=== PATIENT | female | born 1960 | race Caucasian/White ===

== ENCOUNTER 2022-02-07 09:51 | Outpatient (REF) | payer OTHER, SELFPAY ==
[2022-02-07 10:01] LABS: MANUAL DIFF FLAG NO
[2022-02-07 10:16] LABS: Basophils Absolute Auto 0.1 X10*3/uL (0.0-0.2); Basophils Percent Auto 0.6 % (0-2); Eosinophils Absolute Auto 0.2 X10*3/uL (0.0-0.4); Eosinophils Percent Auto 1.8 % (0-4); Hematocrit 37.8 % (37.0-47.0); Hemoglobin 12.4 g/dl (12.0-16.0); Imm Gran Abs Auto 0.02 X10*3/uL (0.00-0.03); Imm Gran Pct Auto 0.2 % (0.0-0.4); Lymphocytes Absolute Auto 2.8 X10*3/uL (1.2-4.9); Lymphocytes Percent Auto 29.3 % (20-40); Mean Corpuscular HGB Conc 32.8 g/dl (31.0-35.0); Mean Corpuscular Hemoglobin 27.9 pg (27.0-33.0); Mean Corpuscular Volume 85.1 fL (80.0-98.0); Mean Platelet Volume 9.2 fL (9.4-12.3); Monocytes Absolute Auto 0.6 X10*3/uL (0.1-1.2); Monocytes Percent Auto 6.5 % (2-11); Neutrophils Absolute Auto 5.9 x10*3/uL (2.0-8.3); Neutrophils Percent Auto 61.6 % (45-73); Platelet Count 354 X10*3/uL (160-400); Red Blood Count 4.44 X10*6/uL (4.20-5.50); Red Cell Distribution Width 12.9 % (11.0-16.0); White Blood Count 9.6 X10*3/uL (4.8-10.8)
[2022-02-07 10:53] LABS: Alanine Aminotransferase 25 U/L (0-31); Albumin Level 4.8 g/dL (3.5-5.0); Alkaline Phosphatase 94 U/L (39-117); Anion Gap 16 (12-20); Aspartate Amino Transferase 26 U/L (5-31); Bilirubin Total 0.3 mg/dL (0.0-1.0); Blood Urea Nitrogen 11 mg/dL (9-16); Calcium 9.8 mg/dL (8.4-10.2); Carbon Dioxide 23 mmol/L (22-29); Chloride 104 mmol/L (96-108); Cholesterol 231 mg/dL; Estimated Glomerular Filt Rate > 60; Glucose Fasting 102 mg/dL (60-99); HDL Cholesterol 49 mg/dL; LDL Cholesterol Calculated 152 mg/dl; Potassium 4.1 mmol/L (3.3-5.1); Sodium 139 mmol/L (135-145); Triglycerides 152 mg/dL
[2022-02-07 11:04] LABS: TSH reflex Free T4 3.66 uIU/mL (0.32-4.0); Vitamin D 25-OH Total 25.5 ng/mL (>30)
[2022-02-07 11:15] LABS: Erythrocyte Sedimentation Rate 30 MM/HR (0-20)
[2022-02-07 11:44] LABS: Appearance Urine CLEAR; Color Urine YELLOW; Glucose Urine UA NEG (NEG); Leukocyte Esterase Urine NEG (NEG); Nitrite Urine NEG (NEG); Specific Gravity - Urine 1.015 (1.005-1.025); Urine Blood NEG (NEG); Urine Ketones NEG (NEG); Urine Protein NEG (NEG-TRACE)
== END 2022-02-07 09:52 | disposition home or self-care (01) ==
LOC: HO.LAB 09:51
PROVIDERS: PCP Internal Medicine; Visit Provider Internal Medicine
DX: R30.0 Dysuria (principal); D64.9 Anemia, unspecified; E78.00 Pure hypercholesterolemia, unspecified; M25.50 Pain in unspecified joint; E55.9 Vitamin D deficiency, unspecified
CPT/HCPCS: 36415; 80053; 80061; 81003; 82306; 84443; 85025; 85652

== ENCOUNTER 2023-01-13 12:43 | Outpatient (AMB) | payer OTHER, SELFPAY ==
--- NOTE | 2023-01-13 12:45 | A.OFFPC_ITS ---
Vital Signs 01/13/23 12:46 Height 5 ft 5 in Weight 126 lb 4 oz BMI 21.0 BP 140/82 H Blood Pressure Location Lt brachial Position Sitting Pulse 96 Pulse Source Pulse Oximeter Pulse Oximetry (%) 97 Oxygen Delivery Method Room Air Intake Visit Reasons: Annual exam Intake Note: Patient is here for a physical exam. Ux Lead Required: No Accompanied by: Self / Same As Patient Allergies azithromycin [From ZITHROMAX] Adverse Reaction (Severe, Verified 05/19/23 14:22) SHORTNESS OF BREATH codeine [CODEINE] Adverse Reaction (Severe, Verified 05/19/23 14:22) SHORTNESS OF BREATH penicillin V Adverse Reaction (Unknown, Verified 05/19/23 14:22) fever ??? Medication List - Last Reconciled 01/13/23 by Jossue Trevino MD acetaminophen (Tylenol) 325 mg PO .2-3 TIMES A DAY PRN buspirone 5 mg (1/2 x 10 mg) PO BID ergocalciferol (vitamin D2) 10 mcg PO BID 30 days loratadine 10 mg PO DAILY PRN multivitamin 1 tab PO DAILY nabumetone 500 mg PO BID PRN Tobacco use date assessed: 01/13/23 HPI Annual exam HPI Details Patient comes in today for her annual physical examination States that she feels okay except for her spring allergies Is currently taking Loratadine 10 mg QD but would also like to get an Rx for a nasal spray She denies any headaches or dizziness; denies any fever or sore throat Denies any chest pains, no SOB No nausea/vomiting, no abdominal pain No change in bowel habits noted Denies any acute urinary symptoms Mammogram was last done in 2009 - patient has declined to go for annual screening mammograms since then Pap smear and district administrative assistant exam last done on 04/13/2013 - has not had one done since by choice [facility] Medical History Vitamin D deficiency Arthralgia Allergic rhinitis Chronic tonsillar hypertrophy Elevated LFTs Hyperlipidemia Vitiligo Anxiety Depression Arthritis Anemia Surgical History No pertinent past surgical history Family History Father No problems noted. Mother No problems noted. Social History Housing: House Alcohol intake: never Patient Tobacco Use Status: Former Tobacco user e-Cigarette/Vaping Use: Never Used Second Hand Smoke Exposure: Yes service: No Current occupational status: unemployed Cognitive needs: No Hearing needs: No Vision needs: No Female Reproductive History Menstrual Menopause type: natural (since 2009) Total pregnancies: 1 Full term: 1 Premature: 0 Number of Living Children: 1 Date of last pap smear: 04/13/13 History of abnormal pap smear: No Date of Mammogram: 12/14/09 History of abnormal mammogram: No Questionnaire PHQ-9 Over the last 2 weeks, how often have you been bothered by any of the following problems? 1. Little interest or pleasure in doing things: not at all 2. Feeling down, depressed, or hopeless: not at all 3. Trouble falling or staying asleep, or sleeping too much: not at all 4. Feeling tired or having little energy: not at all 5. Poor appetite or overeating: not at all 6. Feeling bad about yourself - or that you are a failure or have let yourself or your family down: not at all 7. Trouble concentrating on things, such as reading the newspaper or watching television: not at all 8. Moving or speaking so slowly that other people could have noticed. Or the opposite - being so fidgety or restless that you have been moving around a lot more than usual: not at all 9. Thoughts that you would be better off or of hurting yourself in some way: not at all Total score: 0 Depression Screening Interpretation: Negative (symptoms controlled on Rx) 56852 - PHQ-9 Billing: Yes Source: Developed by Drs. Chandana Wright, Margo Tyson, Harry Carlson and colleagues, with an educational abbey from [employer]. Thrive Questionnaire Date Thrive assessed: 01/13/23 I am a: Patient What is your living situation today?: I have a steady place to live Within the past 12 months, did the food you bought not last and you didn't have the money to get more?: Never true Within the past 12 months, did you worry whether your food would run out before you got money to buy more?: Never true Do you have trouble paying for medicines?: No Do you have trouble getting transportation to medical appointments?: No Do you have trouble paying your heating and electricity bill?: No Do you have trouble taking care of your child, family member or friend?: No Do you have trouble with day-to-day activities such as bathing, preparing meals, shopping, managing finances, etc.?: No Are you currently unemployed and looking for a job?: No Are you interested in more education?: No Currently or been in a relationship where the following occur: no concerns reported AUDIT C Alcohol Use Questionnaire (AUDIT-C) 1. How often do you have a drink containing alcohol?: Never 3. How often do you have six or more drinks on one occasion?: Never Total Score: 0 Score Reviewed/Action Taken: Yes CARLY-7 AMB Questionnaire CARLY-7 Date CARLY - 7 assessed: 01/13/23 Feeling nervous, anxious, or on edge: 0 = Not at all Not being able to stop or control worryin = Not at all Worrying too much about different things: 0 = Not at all Trouble relaxin = Not at all Being so restless that it is hard to sit still: 0 = Not at all Becoming easily annoyed or irritable: 0 = Not at all Feeling afraid as if something awful might happen: 0 = Not at all Total CARLY-7 score (0-4 normal; 5-9 mild; 10-14 moderate; 15-21 severe): 0 Source: Developed by Drs. Chandana Wright, Margo Tyson, Harry Carlson and colleagues, with an educational abbey from [employer]. CARLY-7 Assessment Billing CARLY-7 Assessment Tool: CARLY-7 Assessment 31662 Review of Systems Const Denies chills, Reports fatigue, Denies fever(s), Denies headache(s) and Denies malaise Eyes Denies blurry vision, Denies change in vision, Denies irritation and Denies itchy eyes ENT Denies dysphagia, Denies dizziness, Denies otalgia, Denies headache(s), Denies nasal congestion, Denies neck pain, Denies odynophagia, Denies sinus pain and Denies sore throat Card Denies chest pain, Denies rapid heart rate, Denies irregular heart rhythm, Denies palpitations and Denies dyspnea Resp Denies chest congestion, Denies cough, Denies dyspnea and Denies wheezing GI Denies abdominal pain, Denies bloating, Denies constipation, Denies dysphagia, Denies heartburn, Denies diarrhea, Denies nausea, Denies odynophagia and Denies vomiting Denies hematuria, Denies urinary frequency, Denies dysuria, Denies urinary incontinence and Denies urinary urgency Musc Denies back pain, Denies arthralgias, Denies joint swelling, Denies muscle weakness and Denies neck pain Skin/Breast Denies breast pain, Denies breast mass, Denies change in pigmentation, Denies lesions, Denies rash and Denies unusual bruising Neuro Denies dizziness, Denies headache(s) and Denies paresthesias Psych Denies anxiety and Denies depression Endo Reports fatigue and Denies palpitations Toni/Lymph Denies easy bruising Aller/Immun Denies itchy eyes, Reports seasonal rhinorrhea and Denies wheezing Physical exam (Primary Care) Vital Signs: Last Vital Signs Pulse 96 01/13/23 12:46 BP 140/82 H 01/13/23 12:46 Pulse Ox 97 01/13/23 12:46 Oxygen Delivery Method Room Air 01/13/23 12:46 BMI result Body Mass Index 21.0 Tobacco/Smoking Status: Tobacco use Status Tobacco use date assessed 01/13/23 01/13/23 12:53 Patient Tobacco Use Status Former Tobacco user 01/13/23 12:53 e-Cigarette/Vaping Use Never Used 01/13/23 12:53 PHQ-9: PHQ-9 Score PHQ-9: Total score 0 01/13/23 13:24 Depression Screening Interpretation: Negative (symptoms controlled on Rx) Thrive Assessment: Date of Thrive Assessment Date Thrive assessed 01/13/23 01/13/23 12:53 Currently or been in a relationship where the following occur: no concerns reported Const General: no acute distress, alert and awake Orientation/consciousness: patient oriented x3 HENMT Head: Yes normocephalic and Yes atraumatic Ears: external ears normal, TM's normal bilaterally and EAC's normal General nose exam: No nasal discharge present Face and sinus: Yes normal facial exam and Yes sinuses nontender Teeth and gingiva: dentition normal Throat: Yes posterior oropharynx normal and Yes tonsils normal (no TP congestion) Eyes Eyelids: Yes eyelids normal Conjunctivae: conjunctivae normal Pupils: Equal, round and reactive pupils present EOM: EOMs intact bilaterally Neck Neck: Yes no lymphadenopathy and Yes supple Thyroid: Thyroid normal Resp Auscultation: clear to auscultation bilaterally, no rales and no wheezes Cardio Rate: regular rate Rhythm: regular rhythm Heart sounds: no murmurs GI Palpation (GI): Soft to palpation, nontender and No hepatosplenomegaly present Auscultation: normal bowel sounds General: Yes no CVA tenderness Back/Spine/Pelvis Back: no CVA tenderness Thoracic/Lumbar Spine: thoracic and lumbar spine normal to inspection Skin Lesions: no lesions Rashes: no rashes Neuro General: patient oriented x3, moves all extremities, no focal motor deficits and CN's II-XI intact bilaterally Cranial nerves: Yes Equal, round and reactive pupils present Cognition (Neuro): normal cognition Gait exam (Neuro): Normal gait present Extrem General: Yes no clubbing, cyanosis or edema Assessment and Plan Assessment & Plan (1) Annual physical exam: Code(s): Z00.00 - Encounter for general adult medical examination without abnormal findings Plan: Check labs Patient declined referrals for district administrative assistant exam/pap smear and repeat mammogram She has never had a colonoscopy done before and does not want one BUT agrees to do at least a Cologuard testing - ordered (2) Hyperlipidemia: Code(s): E78.5 - Hyperlipidemia, unspecified Qualifiers: Hyperlipidemia type: pure hypercholesterolemia Qualified Code(s): E78.00 - Pure hypercholesterolemia, unspecified Plan: Reinforced low cholesterol diet Will recheck her fasting lipids [facility] for follow up (3) Anemia: Code(s): D64.9 - Anemia, unspecified Qualifiers: Anemia type: unspecified type Qualified Code(s): D64.9 - Anemia, unspecified Plan: Her anemia was corrected on her lab results from over a year ago Will recheck her CBC and continue to monitor her CBC periodically / yearly (4) Chronic tonsillar hypertrophy: Code(s): J35.1 - Hypertrophy of tonsils Plan: Currently remains asymptomatic -?will continue to observe for now Patient was referred to ENT for evaluation in the past but she was not able to keep her appointment and prefers not to see ENT at this time since her throat has not been bothering her at all (5) Allergic rhinitis: Code(s): J30.9 - Allergic rhinitis, unspecified Qualifiers: Allergic rhinitis trigger: unspecified Allergic rhinitis seasonality: unspecified Qualified Code(s): J30.9 - Allergic rhinitis, unspecified Plan: Continue OTC Loratadine 10 mg QD PRN Will start her additionally on Fluticasone 50 mcg nasal spray QD PRN (6) Vitamin D deficiency: Code(s): E55.9 - Vitamin D deficiency, unspecified Plan: Will start her on Vitamin D3 2000 units QD Reminded to continue taking her daily Multivitamins as well (7) Arthralgia: Code(s): M25.50 - Pain in unspecified joint Qualifiers: Joint pain location: unspecified Qualified Code(s): M25.50 - Pain in unspecified joint Plan: Continue Nabumetone 500 mg BID PRN and OTC Tylenol as needed for pain -? states that her joint pains have been adequately controlled on her current regimen (8) Anxiety: Code(s): F41.9 - Anxiety disorder, unspecified Plan: Continue Buspirone 30 mg 1/2 tablet BID Follow-up with Psychiatry as scheduled Plan Follow up in 4 months Orders: Orders Complete Blood Count Auto Diff 01/13/23 I10 - Essential (primary) hypertension, Z00.00 - Encounter for general adult medical examination without abnormal findings TSH reflex Free T4 01/13/23 E78.00 - Pure hypercholesterolemia, unspecified, Z00.00 - Encounter for general adult medical examination without abnormal findings Vitamin B12 and Folate 01/13/23 E53.8 - Deficiency of other specified B group vitamins, Z00.00 - Encounter for general adult medical examination without abnormal findings Comprehensive [place]. Panel Fast 01/13/23 E78.00 - Pure hypercholesterolemia, unspecified, Z00.00 - Encounter for general adult medical examination without abnormal findings Lipid Panel 01/13/23 E78.00 - Pure hypercholesterolemia, unspecified, Z00.00 - Encounter for general adult medical examination without abnormal findings UA CC w/rflx Micro + Cult 01/13/23 R30.0 - Dysuria, Z00.00 - Encounter for general adult medical examination without abnormal findings Vitamin D 25-OH Total 01/13/23 E55.9 - Vitamin D deficiency, unspecified, Z00.00 - Encounter for general adult medical examination without abnormal findings Referrals Cologuard Test Z12.11 - Encounter for screening for malignant neoplasm of colon, Z12.12 - Encounter for screening for malignant neoplasm of rectum Medications: New fluticasone propionate 50 mcg/actuation administer into each nostril 2 sprays intranasal DAILY PRN 16 grams 5RF allergy symptoms 30 days cholecalciferol (vitamin D3) 50 mcg PO DAILY 90 caps 3RF 90 days E55.9 - Vitamin D deficiency, unspecified Discontinued ergocalciferol (vitamin D2) Discontinued Reason: Doctor's Order 10 mcg PO BID 30 days 60 tabs 5RF Review Patient declined Mammogram: 01/13/23 Declined Pap Smear: 01/13/23 Patient declined Colonoscopy: 01/13/23 (agrees to do Cologuard) Coding Level of Care Code Est Pt Prev Care 40-64y(73957) Diagnoses Annual physical exam Z00.00 Pure hypercholesterolemia E78.00 Hyperlipidemia type: pure hypercholesterolemia Anemia, unspecified type D64.9 Anemia type: unspecified type Chronic tonsillar hypertrophy J35.1 Allergic rhinitis, unspecified seasonality, unspecified trigger J30.9 Allergic rhinitis trigger: unspecified Allergic rhinitis seasonality: unspecified Vitamin D deficiency E55.9 Arthralgia, unspecified joint M25.50 Joint pain location: unspecified Anxiety F41.9 Additional Codes CARLY-7 Assessment Billing - CARLY-7 Assessment Tool: CARLY-7 Assessment 15053 ([id number])
[2023-01-13 12:46] VITALS: BP 140/82; PULSE 96; O2SAT 97; BMI 21.0
== END 2023-01-13 13:32 | disposition home or self-care (01) ==
LOC: HO.HMGH 12:43
PROVIDERS: PCP Internal Medicine; Visit Provider Internal Medicine
DX: Z00.00 Encounter for general adult medical examination without abnormal findings (principal); E55.9 Vitamin D deficiency, unspecified; F41.9 Anxiety disorder, unspecified; E78.00 Pure hypercholesterolemia, unspecified; D64.9 Anemia, unspecified; J35.1 Hypertrophy of tonsils; J30.9 Allergic rhinitis, unspecified; M25.50 Pain in unspecified joint
CPT/HCPCS: 99396

== ENCOUNTER 2023-05-19 13:59 | Outpatient (AMB) | payer OTHER, SELFPAY ==
--- NOTE | 2023-05-19 13:59 | MHC.PC.OV ---
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 Medication List - Last Reconciled 05/19/23 by Jossue Trevino MD acetaminophen (Tylenol) 325 mg PO .2-3 TIMES A DAY PRN buspirone 5 mg (1/2 x 10 mg) PO BID cholecalciferol (vitamin D3) 50 mcg PO DAILY 90 days fluticasone propionate 50 mcg/actuation 2 sprays intranasal DAILY PRN 30 days loratadine 10 mg PO DAILY PRN multivitamin 1 tab PO DAILY nabumetone 500 mg PO BID PRN Tobacco use date assessed: 05/19/23 Dental Screening Dental Screen Date: 05/19/23 Did you have a dental visit in the last 12 months?: No Did you have a dental problem in the last 6 months where you did not have access to dental care?: No Was dental information given to patient?: No HPI hyperlipidemia, anxiety [phone] HPI Details Patient's follow-up visit / consultation today is done over the phone - this is a Telehealth visit Patient's current medications have been reviewed and verified with patient and / or caregiver / proxy and have been updated accordingly in the medication list Patient states that she recently changed insurance and was advised 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 that she should be requesting for a 3 months' supply on her Rx from now on - states that she needs a couple of her Rx refilled at this time States that she has not yet gotten her previously ordered labs done and will try to get these done DAMION She denies any headaches or dizziness Denies any chest pains, no SOB No nausea/vomiting, no abdominal pain No change in bowel habits noted PFSH Medical History Vitamin D deficiency Arthralgia Allergic rhinitis Chronic tonsillar hypertrophy Elevated LFTs Hyperlipidemia Vitiligo Anxiety Depression Arthritis Anemia Surgical History No pertinent past surgical history Family History Father No problems noted. Mother No problems noted. Social History Housing: House Alcohol intake: never Patient Tobacco Use Status: Former Tobacco user e-Cigarette/Vaping Use: Never Used Second Hand Smoke Exposure: Yes service: No Current occupational status: unemployed Cognitive needs: No Hearing needs: No Vision needs: No Questionnaire PHQ-9 Over the last 2 weeks, how often have you been bothered by any of the following problems? 1. Little interest or pleasure in doing things: not at all 2. Feeling down, depressed, or hopeless: not at all 3. Trouble falling or staying asleep, or sleeping too much: not at all 4. Feeling tired or having little energy: not at all 5. Poor appetite or overeating: not at all 6. Feeling bad about yourself - or that you are a failure or have let yourself or your family down: not at all 7. Trouble concentrating on things, such as reading the newspaper or watching television: not at all 8. Moving or speaking so slowly that other people could have noticed. Or the opposite - being so fidgety or restless that you have been moving around a lot more than usual: not at all 9. Thoughts that you would be better off or of hurting yourself in some way: not at all Total score: 0 Depression Screening Interpretation: Negative (symptoms controlled on Rx) 14683 - PHQ-9 Billing: Yes Source: Developed by Drs. Chandana Wright, Margo Tyson, Harry Carlson and colleagues, with an educational abbey from [employer]. Thrive Questionnaire Date Thrive assessed: 05/19/23 I am a: Patient What is your living situation today?: I have a steady place to live Within the past 12 months, did the food you bought not last and you didn't have the money to get more?: Never true Within the past 12 months, did you worry whether your food would run out before you got money to buy more?: Never true Do you have trouble paying for medicines?: No Do you have trouble getting transportation to medical appointments?: No Do you have trouble paying your heating and electricity bill?: No Do you have trouble taking care of your child, family member or friend?: No Do you have trouble with day-to-day activities such as bathing, preparing meals, shopping, managing finances, etc.?: No Are you currently unemployed and looking for a job?: No Are you interested in more education?: No Please select the resources that you would like help with: None Currently or been in a relationship where the following occur: no concerns reported AUDIT C Alcohol Use Questionnaire (AUDIT-C) 1. How often do you have a drink containing alcohol?: Never 3. How often do you have six or more drinks on one occasion?: Never Total Score: 0 Score Reviewed/Action Taken: Yes CARLY-7 AMB Questionnaire CARLY-7 Date CARLY - 7 assessed: 05/19/23 Feeling nervous, anxious, or on edge: 0 = Not at all Not being able to stop or control worryin = Not at all Worrying too much about different things: 0 = Not at all Trouble relaxin = Not at all Being so restless that it is hard to sit still: 0 = Not at all Becoming easily annoyed or irritable: 0 = Not at all Feeling afraid as if something awful might happen: 0 = Not at all Total CARLY-7 score (0-4 normal; 5-9 mild; 10-14 moderate; 15-21 severe): 0 Source: Developed by Drs. Chandana Wright, Margo Tyson, Harry Carlson and colleagues, with an educational abbey from [employer]. CARLY-7 Assessment Billing CARLY-7 Assessment Tool: CARLY-7 Assessment 98704 Review of Systems Const Denies chills, Reports fatigue, Denies fever(s) and Denies headache(s) ENT Denies dysphagia, Denies dizziness, Denies otalgia, Denies headache(s), Denies neck pain, Denies odynophagia and Denies sore throat Card Denies chest pain, Denies rapid heart rate, Denies irregular heart rhythm, Denies palpitations and Denies dyspnea Resp Denies chest congestion, Denies cough, Denies dyspnea and Denies wheezing GI Denies abdominal pain, Denies constipation, Denies dysphagia, Denies heartburn, Denies diarrhea, Denies nausea, Denies odynophagia and Denies vomiting Denies hematuria, Denies urinary frequency and Denies dysuria Musc Denies back pain and Denies neck pain Neuro Denies dizziness and Denies headache(s) Psych Denies anxiety and Denies depression Endo Reports fatigue and Denies palpitations Toni/Lymph Denies easy bruising Aller/Immun Reports seasonal rhinorrhea and Denies wheezing Physical exam (Primary Care) Vital Signs: Physical examination is not performed as visit / consultation today is done over the phone - Telehealth visit All physical findings indicated here, if present, are as per patient's and / or caregivers / proxy's report Tobacco/Smoking Status: Tobacco use Status Tobacco use date assessed 05/19/23 05/19/23 14:02 Patient Tobacco Use Status Former Tobacco user 05/19/23 14:02 e-Cigarette/Vaping Use Never Used 05/19/23 14:02 PHQ-9: PHQ-9 Score PHQ-9: Total score 0 05/19/23 14:02 Depression Screening Interpretation: Negative (symptoms controlled on Rx) Thrive Assessment: Date of Thrive Assessment Date Thrive assessed 05/19/23 05/19/23 14:02 Currently or been in a relationship where the following occur: no concerns reported Telehealth Telehealth Location of provider rendering services: practice address Location of patient: address on file Patient Identification confirmed using: Name, : Yes Telehealth method: voice only Patient verbally consented to treatment: Yes Patient verbally consented to billing insurance company: Yes Patient informed of any privacy concerns related to visit: Yes Minutes spent on Phone/Video with Pt.: 16 Assessment and Plan Assessment & Plan (1) Hyperlipidemia: Code(s): E78.5 - Hyperlipidemia, unspecified Qualifiers: Hyperlipidemia type: pure hypercholesterolemia Qualified Code(s): E78.00 - Pure hypercholesterolemia, unspecified Plan: Reinforced low cholesterol diet She still has not been able to get her follow up labs done and is reminded to try to get these done DAMION (2) Anemia: Code(s): D64.9 - Anemia, unspecified Qualifiers: Anemia type: unspecified type Qualified Code(s): D64.9 - Anemia, unspecified Plan: Advised that her anemia was corrected on her last lab results from over a year ago Will continue to monitor her CBC periodically / yearly (3) Chronic tonsillar hypertrophy: Code(s): J35.1 - Hypertrophy of tonsils Plan: Currently remains asymptomatic -?will continue to observe for now Patient was referred to ENT for evaluation in the past but she was not able to keep her appointment and prefers not to see ENT at this time since her throat has not been bothering her at all (4) Allergic rhinitis: Code(s): J30.9 - Allergic rhinitis, unspecified Qualifiers: Allergic rhinitis trigger: unspecified Allergic rhinitis seasonality: unspecified Qualified Code(s): J30.9 - Allergic rhinitis, unspecified Plan: Continue OTC Loratadine 10 mg QD PRN and Fluticasone 50 mcg nasal spray QD PRN - Rx refilled for 90 days's supply, per request (5) Vitamin D deficiency: Code(s): E55.9 - Vitamin D deficiency, unspecified Plan: Continue Vitamin D2 400 units BID - could not tolerate Vitamin D3 2000 units QD previously Reminded to continue taking her daily Multivitamins as well (6) Arthralgia: Code(s): M25.50 - Pain in unspecified joint Qualifiers: Joint pain location: unspecified Qualified Code(s): M25.50 - Pain in unspecified joint Plan: Continue Nabumetone 500 mg BID PRN and OTC Tylenol as needed for pain -? states that her joint pains have been adequately controlled on her current regimen (7) Anxiety: Code(s): F41.9 - Anxiety disorder, unspecified Plan: Continue Buspirone 30 mg 1/2 tablet BID Follow-up with Psychiatry as scheduled Plan Follow up in 4 months Medications: Changed From loratadine 10 mg PO DAILY PRN 30 tabs 5RF for allergies To loratadine 10 mg PO DAILY 90 days PRN 90 tabs 3RF for allergies From fluticasone propionate 50 mcg/actuation administer into each nostril 2 sprays intranasal DAILY 30 days PRN 16 grams 5RF allergy symptoms To fluticasone propionate 50 mcg/actuation administer into each nostril 2 sprays intranasal DAILY 90 days 3 multiple units 3RF allergy symptoms Coding Level of Care Code Tele Est Pt Level 3 (74810) Diagnoses Pure hypercholesterolemia E78.00 Hyperlipidemia type: pure hypercholesterolemia Anemia, unspecified type D64.9 Anemia type: unspecified type Chronic tonsillar hypertrophy J35.1 Allergic rhinitis, unspecified seasonality, unspecified trigger J30.9 Allergic rhinitis trigger: unspecified Allergic rhinitis seasonality: unspecified Vitamin D deficiency E55.9 Arthralgia, unspecified joint M25.50 Joint pain location: unspecified Anxiety F41.9 Additional Codes CARLY-7 Assessment Billing - CARLY-7 Assessment Tool: CARLY-7 Assessment 20176 ([id number])
== END 2023-05-19 14:57 | disposition home or self-care (01) ==
LOC: HO.HMGH 13:59
PROVIDERS: PCP Internal Medicine; Visit Provider Internal Medicine
DX: E78.00 Pure hypercholesterolemia, unspecified (principal); D64.9 Anemia, unspecified; E55.9 Vitamin D deficiency, unspecified; F41.9 Anxiety disorder, unspecified; J35.1 Hypertrophy of tonsils; J30.9 Allergic rhinitis, unspecified; M25.50 Pain in unspecified joint
CPT/HCPCS: 99213

== ENCOUNTER 2023-09-22 14:21 | Outpatient (AMB) | payer OTHER, SELFPAY ==
[2023-09-22 14:23] VITALS: BP 160/90; PULSE 107; O2SAT 98; BMI 21.0
--- NOTE | 2023-09-22 14:23 | MHC.PC.OV ---
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 Medication List - Last Reconciled 09/22/23 by Jossue Trevino MD acetaminophen (Tylenol) 325 mg PO .2-3 TIMES A DAY PRN buspirone 5 mg (1/2 x 10 mg) PO BID cholecalciferol (vitamin D3) 50 mcg PO DAILY 90 days fluticasone propionate 50 mcg/actuation 2 sprays intranasal DAILY 90 days loratadine 10 mg PO DAILY PRN 90 days multivitamin 1 tab PO DAILY nabumetone 500 mg PO BID PRN Tobacco use date assessed: 09/22/23 Dental Screening Dental Screen Date: 09/22/23 Did you have a dental visit in the last 12 months?: No Did you have a dental problem in the last 6 months where you did not have access to dental care?: No Was dental information given to patient?: No HPI hyperlipidemia, anxiety HPI Details Patient comes in today for her follow up visit States that she feels okay Thinks that the reason her initial blood pressure was very high when checked was because she rode her bike all the way here from her house for her appointment and would like to have her blood pressure rechecked now that she has settled down She denies any headaches or dizziness Denies any chest pains, no SOB No nausea/vomiting, no abdominal pain No change in bowel habits noted States that she still has not gotten her labs done yet as she does not want to go to the hospital now due to increased risks of respiratory infection PFSH Medical History Vitamin D deficiency Arthralgia Allergic rhinitis Chronic tonsillar hypertrophy Elevated LFTs Hyperlipidemia Vitiligo Anxiety Depression Arthritis Anemia Surgical History No pertinent past surgical history Family History Father No problems noted. Mother No problems noted. Social History Housing: House Alcohol intake: never Patient Tobacco Use Status: Former Tobacco user e-Cigarette/Vaping Use: Never Used Second Hand Smoke Exposure: Yes service: No Current occupational status: unemployed Cognitive needs: No Hearing needs: No Vision needs: No Questionnaire PHQ-9 Over the last 2 weeks, how often have you been bothered by any of the following problems? 1. Little interest or pleasure in doing things: not at all 2. Feeling down, depressed, or hopeless: not at all 3. Trouble falling or staying asleep, or sleeping too much: not at all 4. Feeling tired or having little energy: not at all 5. Poor appetite or overeating: not at all 6. Feeling bad about yourself - or that you are a failure or have let yourself or your family down: not at all 7. Trouble concentrating on things, such as reading the newspaper or watching television: not at all 8. Moving or speaking so slowly that other people could have noticed. Or the opposite - being so fidgety or restless that you have been moving around a lot more than usual: not at all 9. Thoughts that you would be better off or of hurting yourself in some way: not at all Total score: 0 Depression Screening Interpretation: Negative (symptoms controlled on Rx) Depression Screening Done: Yes 54888 - PHQ-9 Billing: Yes Source: Developed by Drs. Chandana Wright, Marog Tyson, Harry Carlson and colleagues, with an educational abbey from [email or web address] Thrive Questionnaire Date Thrive assessed: 09/22/23 I am a: Patient What is your living situation today?: I have a steady place to live Within the past 12 months, did the food you bought not last and you didn't have the money to get more?: Never true Within the past 12 months, did you worry whether your food would run out before you got money to buy more?: Never true Do you have trouble paying for medicines?: No Do you have trouble getting transportation to medical appointments?: No Do you have trouble paying your heating and electricity bill?: No Do you have trouble taking care of your child, family member or friend?: No Do you have trouble with day-to-day activities such as bathing, preparing meals, shopping, managing finances, etc.?: No Are you currently unemployed and looking for a job?: No Are you interested in more education?: No Please select the resources that you would like help with: None Currently or been in a relationship where the following occur: no concerns reported THRIVE Score: 0 AUDIT C Alcohol Use Questionnaire (AUDIT-C) 1. How often do you have a drink containing alcohol?: Never 3. How often do you have six or more drinks on one occasion?: Never Total Score: 0 Score Reviewed/Action Taken: Yes CARLY-7 AMB Questionnaire CARLY-7 Date CARLY - 7 assessed: 09/22/23 Feeling nervous, anxious, or on edge: 0 = Not at all Not being able to stop or control worryin = Not at all Worrying too much about different things: 0 = Not at all Trouble relaxin = Not at all Being so restless that it is hard to sit still: 0 = Not at all Becoming easily annoyed or irritable: 0 = Not at all Feeling afraid as if something awful might happen: 0 = Not at all Total CARLY-7 score (0-4 normal; 5-9 mild; 10-14 moderate; 15-21 severe): 0 Source: Developed by Drs. Chandana Wright, Margo Tyson, Harry Carlson and colleagues, with an educational abbey from [email or web address] CARLY-7 Assessment Billing CARLY-7 Assessment Tool: CARLY-7 Assessment 34493 Review of Systems Const Denies chills, Denies fatigue, Denies fever(s) and Denies headache(s) ENT Denies dysphagia, Denies dizziness, Denies otalgia, Denies headache(s), Denies neck pain, Denies odynophagia and Denies sore throat Card Denies chest pain, Denies rapid heart rate, Denies irregular heart rhythm, Denies palpitations and Denies dyspnea Resp Denies chest congestion, Denies cough, Denies dyspnea and Denies wheezing GI Denies abdominal pain, Denies constipation, Denies dysphagia, Denies heartburn, Denies diarrhea, Denies nausea, Denies odynophagia and Denies vomiting Denies hematuria, Denies urinary frequency, Denies dysuria and Denies urinary urgency Musc Denies back pain, Denies arthralgias and Denies neck pain Skin/Breast Denies rash Neuro Denies dizziness and Denies headache(s) Psych Denies anxiety and Denies depression Endo Denies fatigue and Denies palpitations Toni/Lymph Denies easy bruising Aller/Immun Reports seasonal rhinorrhea and Denies wheezing Physical exam (Primary Care) Vital Signs: Last Vital Signs Pulse 107 H 09/22/23 14:23 BP 140/88 H 09/22/23 14:43 Pulse Ox 98 09/22/23 14:23 Oxygen Delivery Method Room Air 09/22/23 14:23 BMI result Body Mass Index 21.0 Tobacco/Smoking Status: Tobacco use Status Tobacco use date assessed 09/22/23 09/22/23 14:24 Patient Tobacco Use Status Former Tobacco user 09/22/23 14:24 e-Cigarette/Vaping Use Never Used 09/22/23 14:24 PHQ-9: PHQ-9 Score PHQ-9: Total score 0 09/22/23 14:49 Depression Screening Interpretation: Negative (symptoms controlled on Rx) Thrive Assessment: Date of Thrive Assessment Date Thrive assessed 09/22/23 09/22/23 14:24 Currently or been in a relationship where the following occur: no concerns reported Const General: no acute distress and alert HENMT Ears: TM's normal bilaterally and EAC's normal Throat: Yes posterior oropharynx normal and Yes abnormal tonsil (chronically enlarged tonsils bilaterally - tonsils do not appear congested) Neck Neck: Yes no lymphadenopathy and Yes supple Thyroid: Thyroid normal Resp Auscultation: clear to auscultation bilaterally, no rales and no wheezes Cardio Rate: regular rate Rhythm: regular rhythm Heart sounds: no murmurs GI Palpation (GI): Soft to palpation and nontender Auscultation: normal bowel sounds General: Yes no CVA tenderness Back/Spine/Pelvis Back: no CVA tenderness Thoracic/Lumbar Spine: thoracic and lumbar spine normal to inspection Skin Rashes: no rashes Extrem General: Yes no clubbing, cyanosis or edema Immunizations pneumoc 20-angella conj-dip cr(PF) 0.5 mL IM syringe Performing Provider: Jossue Trevino MD Performing Location: [facility] Administered by: Shaji Saavedra on 09/22/23 14:54 Dose Route Admin Location Dispensed Lot Number Expiration Date NDC Load Dropper 0.5 mL IM Left Deltoid 0.5 mL [id number] 10/01/24 [employer] Program VIS Given Date VIS Provided VIS Publication Date 09/22/23 Single Vaccine 21 Eligibility Eligibility Date Funding Source Not [facility] Eligible 09/22/23 Private Assessment and Plan Assessment & Plan (1) Hyperlipidemia: Code(s): E78.5 - Hyperlipidemia, unspecified Qualifiers: Hyperlipidemia type: pure hypercholesterolemia Qualified Code(s): E78.00 - Pure hypercholesterolemia, unspecified Plan: Reinforced low cholesterol diet She still has not been able to get her follow up labs done and is again reminded to try to get these done DAMION as she has not had any follow up labs done since 2021 (2) Anemia: Code(s): D64.9 - Anemia, unspecified Qualifiers: Anemia type: unspecified type Qualified Code(s): D64.9 - Anemia, unspecified Plan: Advised that her anemia was corrected when she last had her labs done in 01/2022 but we have not followed up on this since as she has not been able to get her follow up labs done yet Will continue to monitor her CBC periodically / yearly (3) Chronic tonsillar hypertrophy: Code(s): J35.1 - Hypertrophy of tonsils Plan: Currently remains asymptomatic -?will continue to observe for now Patient was referred to ENT for evaluation in the past but she was not able to keep her appointment and prefers not to see ENT at this time since her throat has not been bothering her at all (4) Elevated blood pressure reading in office without diagnosis of hypertension: Code(s): R03.0 - Elevated blood-pressure reading, without diagnosis of hypertension Plan: Patient's blood pressure has improved from her initial reading of 160/90 down to 140/88 mm when it was rechecked Reinforced low sodium diet Have instructed patient to continue monitoring her blood pressure regularly and reminded her that normal systolic BP should be at 120 mm or less (5) Allergic rhinitis: Code(s): J30.9 - Allergic rhinitis, unspecified Qualifiers: Allergic rhinitis seasonality: unspecified Allergic rhinitis trigger: unspecified Qualified Code(s): J30.9 - Allergic rhinitis, unspecified Plan: Continue OTC Loratadine 10 mg QD PRN and Fluticasone 50 mcg nasal spray QD PRN (6) Vitamin D deficiency: Code(s): E55.9 - Vitamin D deficiency, unspecified Plan: Continue Vitamin D2 400 units BID - could not tolerate Vitamin D3 2000 units QD previously She is again reminded to continue taking her daily Multivitamins as well (7) Arthralgia: Code(s): M25.50 - Pain in unspecified joint Qualifiers: Joint pain location: unspecified Qualified Code(s): M25.50 - Pain in unspecified joint Plan: Continue Nabumetone 500 mg BID PRN and OTC Tylenol as needed for pain -? states that her joint pains have been adequately controlled on her current regimen (8) Anxiety: Code(s): F41.9 - Anxiety disorder, unspecified Plan: Continue Buspirone 5 mg 1/2 tablet BID - she was able to cut back her dose on her own gradually over the past year or two Follow-up with Psychiatry as scheduled Plan Per request, Pneumovax-23 given today as she has not yet gotten any pneumonia vaccine in the past; will give her her dose of Prevnar-20 in a year's time Follow up in 4 months Orders: Orders Pneumococcal 20 Immunization 09/22/23 Z23 - Encounter for immunization Coding Level of Care Code Est Pt Level 4 (60718) Diagnoses Pure hypercholesterolemia E78.00 Hyperlipidemia type: pure hypercholesterolemia Anemia, unspecified type D64.9 Anemia type: unspecified type Chronic tonsillar hypertrophy J35.1 Elevated blood pressure reading in office without diagnosis of hypertension R03.0 Allergic rhinitis, unspecified seasonality, unspecified trigger J30.9 Allergic rhinitis seasonality: unspecified Allergic rhinitis trigger: unspecified Vitamin D deficiency E55.9 Arthralgia, unspecified joint M25.50 Joint pain location: unspecified Anxiety F41.9 Additional Codes CARLY-7 Assessment Billing - CARLY-7 Assessment Tool: CARLY-7 Assessment [id number] ([id number])
[2023-09-22 14:43] VITALS: BP 140/88
== END 2023-09-22 14:58 | disposition home or self-care (01) ==
PROVIDERS: PCP Internal Medicine; Visit Provider Internal Medicine
DX: Z23 Encounter for immunization (principal)
CPT/HCPCS: 90471; 90677; 99214

== ENCOUNTER 2024-01-22 14:36 | Outpatient (AMB) | payer OTHER, SELFPAY ==
--- NOTE | 2024-01-22 14:40 | MHC.PC.OV ---
Vital Signs 01/22/24 14:41 Height 5 ft 5 in Weight 126 lb BMI 21.0 BP 120/80 Blood Pressure Location Rt brachial Position Sitting Pulse 92 Pulse Source Pulse Oximeter Pulse Oximetry (%) 96 Oxygen Delivery Method Room Air Intake Visit Reasons: hyperlipidemia, arthralgia, anxiety, depression Intake Note: Patient is here to follow up on HLD, Arthralgia, Anxiety, Depression. Hearing Consultant Required: No Information Systems Security Manager: Not Required per policy Accompanied by: Self / Same As Patient Allergies azithromycin [From ZITHROMAX] Adverse Reaction (Severe, Verified 01/22/24 15:14) SHORTNESS OF BREATH codeine [CODEINE] Adverse Reaction (Severe, Verified 01/22/24 15:14) SHORTNESS OF BREATH penicillin V Adverse Reaction (Unknown, Verified 01/22/24 15:14) fever ??? Medication List - Last Reconciled 01/22/24 by Jossue Trevino MD acetaminophen (Tylenol) 325 mg PO .2-3 TIMES A DAY PRN buspirone 5 mg (1/2 x 10 mg) PO BID cholecalciferol (vitamin D3) 50 mcg PO DAILY 90 days fluticasone propionate 50 mcg/actuation 2 sprays intranasal DAILY 90 days loratadine 10 mg PO DAILY PRN 90 days multivitamin 1 tab PO DAILY nabumetone 500 mg PO BID PRN Tobacco use date assessed: 01/22/24 Dental Screening Dental Screen Date: 09/22/23 HPI hyperlipidemia, arthralgia, anxiety, depression HPI Details Patient comes in today for her follow up visit States that she feels okay She denies any headaches or dizziness Denies any chest pains, no SOB No nausea/vomiting, no abdominal pain No change in bowel habits noted Needs her allergy Rx refilled She still has not been able to get her follow up labs done yet - has not had labs done since 2021 States that she feels well and tries to eat healthy and does not think anything has changed significantly - states that she always has trouble remembering to get her labs over the years [facility] Medical History Vitamin D deficiency Arthralgia Allergic rhinitis Chronic tonsillar hypertrophy Elevated LFTs Hyperlipidemia Vitiligo Anxiety Depression Arthritis Anemia Surgical History No pertinent past surgical history Family History Father No problems noted. Mother No problems noted. Social History Housing: House Alcohol intake: never Patient Tobacco Use Status: Former Tobacco user e-Cigarette/Vaping Use: Never Used Second Hand Smoke Exposure: Yes service: No Current occupational status: unemployed Cognitive needs: No Hearing needs: No Vision needs: No Questionnaire PHQ-9 Over the last 2 weeks, how often have you been bothered by any of the following problems? 1. Little interest or pleasure in doing things: not at all 2. Feeling down, depressed, or hopeless: not at all 3. Trouble falling or staying asleep, or sleeping too much: not at all 4. Feeling tired or having little energy: not at all 5. Poor appetite or overeating: not at all 6. Feeling bad about yourself - or that you are a failure or have let yourself or your family down: not at all 7. Trouble concentrating on things, such as reading the newspaper or watching television: not at all 8. Moving or speaking so slowly that other people could have noticed. Or the opposite - being so fidgety or restless that you have been moving around a lot more than usual: not at all 9. Thoughts that you would be better off or of hurting yourself in some way: not at all Total score: 0 Depression Screening Interpretation: Negative Depression Screening Done: Yes 80842 - PHQ-9 Billing: Yes Source: Developed by Drs. Chandana Wright, Margo Tyson, Harry Carlson and colleagues, with an educational abbey from [employer]. Thrive Questionnaire Date Thrive assessed: 01/22/24 I am a: Patient What is your living situation today?: I have a steady place to live Within the past 12 months, did the food you bought not last and you didn't have the money to get more?: Never true Within the past 12 months, did you worry whether your food would run out before you got money to buy more?: Never true Do you have trouble paying for medicines?: No Do you have trouble getting transportation to medical appointments?: No Do you have trouble paying your heating and electricity bill?: No Do you have trouble taking care of your child, family member or friend?: No Do you have trouble with day-to-day activities such as bathing, preparing meals, shopping, managing finances, etc.?: No Are you currently unemployed and looking for a job?: No Are you interested in more education?: No Please select the resources that you would like help with: None Currently or been in a relationship where the following occur: no concerns reported THRIVE Score: 0 AUDIT C Alcohol Use Questionnaire (AUDIT-C) 1. How often do you have a drink containing alcohol?: Never 3. How often do you have six or more drinks on one occasion?: Never Total Score: 0 Score Reviewed/Action Taken: Yes CARLY-7 AMB Questionnaire CARLY-7 Date CARLY - 7 assessed: 01/22/24 Feeling nervous, anxious, or on edge: 0 = Not at all Not being able to stop or control worryin = Not at all Worrying too much about different things: 0 = Not at all Trouble relaxin = Not at all Being so restless that it is hard to sit still: 0 = Not at all Becoming easily annoyed or irritable: 0 = Not at all Feeling afraid as if something awful might happen: 0 = Not at all Total CARLY-7 score (0-4 normal; 5-9 mild; 10-14 moderate; 15-21 severe): 0 Source: Developed by Drs. Chandana Wright, Margo Tyson, Harry Carlson and colleagues, with an educational abbey from [employer]. Review of Systems Const Denies chills, Denies fatigue, Denies fever(s) and Denies headache(s) ENT Denies dysphagia, Denies dizziness, Denies otalgia, Denies headache(s), Denies neck pain, Denies odynophagia and Denies sore throat Card Denies chest pain, Denies rapid heart rate, Denies irregular heart rhythm, Denies palpitations and Denies dyspnea Resp Denies chest congestion, Denies cough, Denies dyspnea and Denies wheezing GI Denies abdominal pain, Denies constipation, Denies dysphagia, Denies heartburn, Denies diarrhea, Denies nausea, Denies odynophagia and Denies vomiting Denies hematuria, Denies urinary frequency, Denies dysuria and Denies urinary urgency Musc Denies back pain, Denies arthralgias and Denies neck pain Skin/Breast Denies rash Neuro Denies dizziness and Denies headache(s) Psych Denies anxiety and Denies depression Endo Denies fatigue and Denies palpitations Toni/Lymph Denies easy bruising Aller/Immun Reports seasonal rhinorrhea and Denies wheezing Physical exam (Primary Care) Vital Signs: Last Vital Signs Pulse 92 01/22/24 14:41 BP 120/80 01/22/24 14:41 Pulse Ox 96 01/22/24 14:41 Oxygen Delivery Method Room Air 01/22/24 14:41 BMI result Body Mass Index 21.0 Tobacco/Smoking Status: Tobacco use Status Tobacco use date assessed 01/22/24 01/22/24 14:47 Patient Tobacco Use Status Former Tobacco user 01/22/24 14:47 e-Cigarette/Vaping Use Never Used 01/22/24 14:47 PHQ-9: PHQ-9 Score PHQ-9: Total score 0 01/22/24 15:31 Depression Screening Interpretation: Negative Thrive Assessment: Date of Thrive Assessment Date Thrive assessed 01/22/24 01/22/24 15:31 Currently or been in a relationship where the following occur: no concerns reported Const General: no acute distress and alert HENMT Ears: TM's normal bilaterally and EAC's normal Throat: Yes posterior oropharynx normal and Yes abnormal tonsil (chronically enlarged tonsils bilaterally - tonsils do not appear congested) Neck Neck: Yes no lymphadenopathy and Yes supple Thyroid: Thyroid normal Resp Auscultation: clear to auscultation bilaterally, no rales and no wheezes Cardio Rate: regular rate Rhythm: regular rhythm Heart sounds: no murmurs GI Palpation (GI): Soft to palpation and nontender Auscultation: normal bowel sounds General: Yes no CVA tenderness Back/Spine/Pelvis Back: no CVA tenderness Thoracic/Lumbar Spine: thoracic and lumbar spine normal to inspection Skin Rashes: no rashes Extrem General: Yes no clubbing, cyanosis or edema Assessment and Plan Assessment & Plan (1) Hyperlipidemia: Code(s): E78.5 - Hyperlipidemia, unspecified Qualifiers: Hyperlipidemia type: pure hypercholesterolemia Qualified Code(s): E78.00 - Pure hypercholesterolemia, unspecified Plan: Reinforced low cholesterol diet She still has not been able to get her follow up labs done and is again reminded to try to get these done [facility] as she has not had any follow up labs done since 2021 (2) Anemia: Code(s): D64.9 - Anemia, unspecified Qualifiers: Anemia type: unspecified type Qualified Code(s): D64.9 - Anemia, unspecified Plan: Advised that her anemia was corrected when she last had her labs done in 01/2022 but we have not followed up on this since as she has not been able to get her follow up labs done yet Will continue to monitor her CBC periodically / yearly if patient can eventually get her labs done (3) Chronic tonsillar hypertrophy: Code(s): J35.1 - Hypertrophy of tonsils Plan: Currently remains asymptomatic -?will continue to observe for now Patient was referred to ENT for evaluation in the past but she was not able to keep her appointment and prefers not to see ENT at this time since her throat has not been bothering her at all (4) Elevated blood pressure reading in office without diagnosis of hypertension: Code(s): R03.0 - Elevated blood-pressure reading, without diagnosis of hypertension Plan: Patient had blood pressure readings of 160/90 and 140/88 mm during her past visits but her BP today is normal Reinforced low sodium diet Have reminded patient to continue monitoring her blood pressure regularly (5) Allergic rhinitis: Code(s): J30.9 - Allergic rhinitis, unspecified Qualifiers: Allergic rhinitis seasonality: unspecified Allergic rhinitis trigger: unspecified Qualified Code(s): J30.9 - Allergic rhinitis, unspecified Plan: Continue OTC Loratadine 10 mg QD PRN and Fluticasone 50 mcg nasal spray QD PRN - Rx refilled (6) Vitamin D deficiency: Code(s): E55.9 - Vitamin D deficiency, unspecified Plan: Continue Vitamin D2 400 units BID - she could not tolerate Vitamin D3 2000 units QD previously She is again reminded to continue taking her daily Multivitamins as well (7) Arthralgia: Code(s): M25.50 - Pain in unspecified joint Qualifiers: Joint pain location: unspecified Qualified Code(s): M25.50 - Pain in unspecified joint Plan: Continue Nabumetone 500 mg BID PRN and OTC Tylenol as needed for pain -? states that her joint pains have been adequately controlled on her current regimen for a while now (8) Anxiety: Code(s): F41.9 - Anxiety disorder, unspecified Plan: Continue Buspirone 5 mg 1/2 tablet BID - she was able to cut back her dose on her own gradually over the past year or two Follow-up with Psychiatry as scheduled Plan Follow up in 4 months Medications: Refilled loratadine 10 mg PO DAILY PRN 90 tabs 3RF for allergies 90 days fluticasone propionate 50 mcg/actuation administer into each nostril 2 sprays intranasal DAILY 3 multiple units 3RF allergy symptoms 90 days Coding Level of Care Code Est Pt Level 4 (34273) Diagnoses Pure hypercholesterolemia E78.00 Hyperlipidemia type: pure hypercholesterolemia Anemia, unspecified type D64.9 Anemia type: unspecified type Chronic tonsillar hypertrophy J35.1 Elevated blood pressure reading in office without diagnosis of hypertension R03.0 Allergic rhinitis, unspecified seasonality, unspecified trigger J30.9 Allergic rhinitis seasonality: unspecified Allergic rhinitis trigger: unspecified Vitamin D deficiency E55.9 Arthralgia, unspecified joint M25.50 Joint pain location: unspecified Anxiety F41.9
[2024-01-22 14:41] VITALS: BP 120/80; PULSE 92; O2SAT 96; BMI 21.0
== END 2024-01-22 15:19 | disposition home or self-care (01) ==
PROVIDERS: PCP Internal Medicine; Visit Provider Internal Medicine
DX: E78.00 Pure hypercholesterolemia, unspecified (principal); D64.9 Anemia, unspecified; J35.1 Hypertrophy of tonsils; R03.0 Elevated blood-pressure reading, without diagnosis of hypertension; J30.9 Allergic rhinitis, unspecified; E55.9 Vitamin D deficiency, unspecified; M25.50 Pain in unspecified joint; F41.9 Anxiety disorder, unspecified
CPT/HCPCS: 99214

== ENCOUNTER 2024-05-25 12:36 | Outpatient (REF) | payer OTHER, SELFPAY ==
[2024-05-25 13:44] LABS: MANUAL DIFF FLAG NO
[2024-05-25 14:03] LABS: Basophils Absolute Auto 0.1 X10*3/uL (0.0-0.2); Basophils Percent Auto 0.6 % (0-2); Eosinophils Percent Auto 0.2 % (0-4); Hematocrit 40.5 % (37.0-47.0); Hemoglobin 13.5 g/dl (12.0-16.0); Imm Gran Abs Auto 0.05 X10*3/uL (0.00-0.03); Imm Gran Pct Auto 0.5 % (0.0-0.4); Lymphocytes Absolute Auto 1.4 X10*3/uL (1.2-4.9); Lymphocytes Percent Auto 13.4 % (20-40); Mean Corpuscular HGB Conc 33.3 g/dl (31.0-35.0); Mean Corpuscular Hemoglobin 28.3 pg (27.0-33.0); Mean Corpuscular Volume 84.9 fL (80.0-98.0); Mean Platelet Volume 9.3 fL (9.4-12.3); Monocytes Absolute Auto 0.6 X10*3/uL (0.1-1.2); Monocytes Percent Auto 5.5 % (2-11); Neutrophils Absolute Auto 8.6 x10*3/uL (2.0-8.3); Neutrophils Percent Auto 79.8 % (45-73); Platelet Count 379 X10*3/uL (160-400); Red Blood Count 4.77 X10*6/uL (4.20-5.50); Red Cell Distribution Width 13.4 % (11.0-16.0); White Blood Count 10.8 X10*3/uL (4.8-10.8)
[2024-05-25 14:38] LABS: Appearance Urine Clear; Color Urine Yellow; Glucose Urine UA Negative (Negative); Leukocyte Esterase Urine Negative (Negative); Nitrite Urine Negative (Negative); PH 5.5 (5.0-9.0); Urine Blood Negative (Negative); Urine Ketones Negative (Negative); Urine Protein Negative (Neg-Trace)
[2024-05-25 14:53] LABS: Alanine Aminotransferase 35 U/L (0-31); Albumin Level 4.9 g/dL (3.5-5.0); Alkaline Phosphatase 150 U/L (39-117); Anion Gap 15 (12-20); Aspartate Amino Transferase 32 U/L (5-31); Bilirubin Total 0.3 mg/dL (0.0-1.0); Blood Urea Nitrogen 13 mg/dL (9-16); Calcium 10.4 mg/dL (8.4-10.2); Carbon Dioxide 27 mmol/L (22-29); Chloride 103 mmol/L (96-108); Cholesterol 218 mg/dL (<200); Estimated Glomerular Filt Rate > 60; Glucose Fasting 105 mg/dL (60-99); HDL Cholesterol 58 mg/dL (>40); LDL Cholesterol Calculated 128 mg/dL (<100); Potassium 4.1 mmol/L (3.3-5.1); Sodium 141 mmol/L (135-145); Total Protein 8.7 g/dL (6.5-8.0); Triglycerides 164 mg/dL (<150)
[2024-05-25 14:54] LABS: TSH reflex Free T4 1.03 uIU/mL (0.32-4.0); Vitamin D 25-OH Total 40.3 ng/mL (>30)
[2024-05-25 15:46] LABS: Estimated Average Glucose 108 mg/dL; Hemoglobin A1c % 5.4 % (<6.0)
== END 2024-05-25 12:37 | disposition home or self-care (01) ==
LOC: HO.LAB 12:36
PROVIDERS: PCP Internal Medicine; Visit Provider Internal Medicine
DX: E78.00 Pure hypercholesterolemia, unspecified (principal); D64.9 Anemia, unspecified; J35.1 Hypertrophy of tonsils; R03.0 Elevated blood-pressure reading, without diagnosis of hypertension; J30.9 Allergic rhinitis, unspecified; E55.9 Vitamin D deficiency, unspecified; M25.50 Pain in unspecified joint; F41.9 Anxiety disorder, unspecified; R30.0 Dysuria; R73.01 Impaired fasting glucose
CPT/HCPCS: 36415; 80053; 80061; 81003; 82306; 83036; 84443; 85025; 96127; 99212

== ENCOUNTER 2024-05-25 12:36 | Outpatient (AMB) | payer OTHER, SELFPAY ==
[2024-05-25 12:38] VITALS: BP 138/86; PULSE 90; O2SAT 96; BMI 21.2
--- NOTE | 2024-05-25 12:38 | A.OFFPC_ITS ---
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 Medication List - Last Reconciled 05/25/24 by Jossue Trevino MD acetaminophen (Tylenol) 325 mg PO .2-3 TIMES A DAY PRN buspirone 5 mg (1/2 x 10 mg) PO BID cholecalciferol (vitamin D3) 50 mcg PO DAILY 90 days fluticasone propionate 50 mcg/actuation 2 sprays intranasal DAILY 90 days loratadine 10 mg PO DAILY PRN 90 days multivitamin 1 tab PO DAILY nabumetone 500 mg PO BID PRN Tobacco use date assessed: 05/25/24 Dental Screening Dental Screen Date: 05/25/24 Did you have a dental visit in the last 12 months?: No Did you have a dental problem in the last 6 months where you did not have access to dental care?: No Was dental information given to patient?: No H[facility] HPI Details Patient comes in today for her follow up visit States that she feels okay except for some left hip pain lately Thinks that she may have strained her hip when she was riding her bike a lot more than usual over the summer Is wondering if she can get a new Rx for Nabumetone, which has helped her a lot in the past She denies any headaches or dizziness Denies any chest pains, no SOB No nausea/vomiting, no abdominal pain No change in bowel habits noted Needs her allergy Rx refilled She still has not been able to get her follow up labs done yet - has not had any labs done since 2021 States that she feels well and tries to eat healthy and does not think anything has changed significantly - states that she always has trouble remembering to get her labs done over the years [facility] Medical History Vitamin D deficiency Arthralgia Allergic rhinitis Chronic tonsillar hypertrophy Elevated LFTs Hyperlipidemia Vitiligo Anxiety Depression Arthritis Anemia Surgical History No pertinent past surgical history Family History Father No problems noted. Mother No problems noted. Social History Housing: House Alcohol intake: never Patient Tobacco Use Status: Former Tobacco user e-Cigarette/Vaping Use: Never Used Second Hand Smoke Exposure: Yes service: No Current occupational status: unemployed Cognitive needs: No Hearing needs: No Vision needs: No Questionnaire PHQ-9 Over the last 2 weeks, how often have you been bothered by any of the following problems? 1. Little interest or pleasure in doing things: not at all 2. Feeling down, depressed, or hopeless: not at all 3. Trouble falling or staying asleep, or sleeping too much: not at all 4. Feeling tired or having little energy: not at all 5. Poor appetite or overeating: not at all 6. Feeling bad about yourself - or that you are a failure or have let yourself or your family down: not at all 7. Trouble concentrating on things, such as reading the newspaper or watching television: not at all 8. Moving or speaking so slowly that other people could have noticed. Or the opposite - being so fidgety or restless that you have been moving around a lot more than usual: not at all 9. Thoughts that you would be better off or of hurting yourself in some way: not at all Total score: 0 Depression Screening Interpretation: Negative Depression Screening Done: Yes 26353 - PHQ-9 Billing: Yes Source: Developed by Drs. Chandana Wright, Margo Tyson, Harry Carlson and colleagues, with an educational abbey from [employer]. Thrive Questionnaire Date Thrive assessed: 05/25/24 I am a: Patient What is your living situation today?: I have a steady place to live Within the past 12 months, did the food you bought not last and you didn't have the money to get more?: Never true Within the past 12 months, did you worry whether your food would run out before you got money to buy more?: Never true Do you have trouble paying for medicines?: No Do you have trouble getting transportation to medical appointments?: No Do you have trouble paying your heating and electricity bill?: No Do you have trouble taking care of your child, family member or friend?: No Do you have trouble with day-to-day activities such as bathing, preparing meals, shopping, managing finances, etc.?: No Are you currently unemployed and looking for a job?: Yes Are you interested in more education?: No Please select the resources that you would like help with: None Currently or been in a relationship where the following occur: No concerns reported THRIVE Score: 0 AUDIT C Alcohol Use Questionnaire (AUDIT-C) 1. How often do you have a drink containing alcohol?: Never 3. How often do you have six or more drinks on one occasion?: Never Total Score: 0 Score Reviewed/Action Taken: Yes CARLY-7 AMB Questionnaire CARLY-7 Date CARLY - 7 assessed: 05/25/24 Feeling nervous, anxious, or on edge: 0 = Not at all Not being able to stop or control worryin = Not at all Worrying too much about different things: 0 = Not at all Trouble relaxin = Not at all Being so restless that it is hard to sit still: 0 = Not at all Becoming easily annoyed or irritable: 0 = Not at all Feeling afraid as if something awful might happen: 0 = Not at all Total CARLY-7 score (0-4 normal; 5-9 mild; 10-14 moderate; 15-21 severe): 0 Source: Developed by Drs. Chandana Wright, Margo Tyson, Harry Carlson and colleagues, with an educational abbey from [employer]. Review of Systems Const Denies chills, Denies fatigue, Denies fever(s) and Denies headache(s) ENT Denies dysphagia, Denies dizziness, Denies otalgia, Denies headache(s), Denies neck pain, Denies odynophagia and Denies sore throat Card Denies chest pain, Denies rapid heart rate, Denies irregular heart rhythm, Denies palpitations and Denies dyspnea Resp Denies chest congestion, Denies cough, Denies dyspnea and Denies wheezing GI Denies abdominal pain, Denies constipation, Denies dysphagia, Denies heartburn, Denies diarrhea, Denies nausea, Denies odynophagia and Denies vomiting Denies hematuria, Denies urinary frequency, Denies dysuria and Denies urinary urgency Musc Denies back pain, Reports arthralgias (left hip - see HPI) and Denies neck pain Skin/Breast Denies rash Neuro Denies dizziness and Denies headache(s) Psych Denies anxiety and Denies depression Endo Denies fatigue and Denies palpitations Toni/Lymph Denies easy bruising Aller/Immun Reports seasonal rhinorrhea and Denies wheezing Physical exam (Primary Care) Vital Signs: Last Vital Signs Pulse 90 05/25/24 12:38 BP 138/86 05/25/24 12:38 Pulse Ox 96 05/25/24 12:38 Oxygen Delivery Method Room Air 05/25/24 12:38 BMI result Body Mass Index 21.2 Tobacco/Smoking Status: Tobacco use Status Tobacco use date assessed 05/25/24 05/25/24 12:46 Patient Tobacco Use Status Former Tobacco user 05/25/24 12:46 e-Cigarette/Vaping Use Never Used 05/25/24 12:46 PHQ-9: PHQ-9 Score PHQ-9: Total score 0 05/25/24 12:46 Depression Screening Interpretation: Negative Thrive Assessment: Date of Thrive Assessment Date Thrive assessed 05/25/24 05/25/24 12:46 Currently or been in a relationship where the following occur: No concerns reported Const General: no acute distress and alert HENMT Ears: TM's normal bilaterally and EAC's normal Throat: Yes posterior oropharynx normal and Yes abnormal tonsil (chronically enlarged tonsils bilaterally - tonsils do not appear congested) Neck Neck: Yes no lymphadenopathy and Yes supple Thyroid: Thyroid normal Resp Auscultation: clear to auscultation bilaterally, no rales and no wheezes Cardio Rate: regular rate Rhythm: regular rhythm Heart sounds: no murmurs GI Palpation (GI): Soft to palpation and nontender Auscultation: normal bowel sounds General: Yes no CVA tenderness Back/Spine/Pelvis Back: no CVA tenderness Thoracic/Lumbar Spine: No lumbar spinal tenderness Skin Rashes: no rashes Extrem General: Yes no clubbing, cyanosis or edema Assessment and Plan Assessment & Plan (1) Hyperlipidemia: Code(s): E78.5 - Hyperlipidemia, unspecified Qualifiers: Hyperlipidemia type: pure hypercholesterolemia Qualified Code(s): E78.00 - Pure hypercholesterolemia, unspecified Plan: Reinforced low cholesterol diet She still has not been able to get her follow up labs done and is again reminded to try to her follow up labs done (ordered) DAM[facility] as she has not had any done since 2021 (2) Anemia: Code(s): D64.9 - Anemia, unspecified Qualifiers: Anemia type: unspecified type Qualified Code(s): D64.9 - Anemia, unspecified Plan: Advised that her anemia was corrected when she last had her labs done in 01/2022 but we have not followed up on this since as she has not been able to get her follow up labs done yet Will continue to monitor her CBC periodically / yearly if patient can eventually get her labs done (3) Chronic tonsillar hypertrophy: Code(s): J35.1 - Hypertrophy of tonsils Plan: Currently remains asymptomatic -?will continue to observe for now Patient was referred to ENT for evaluation in the past but she was not able to keep her appointment and prefers not to see ENT at this time since her throat has not been bothering her at all (4) Elevated blood pressure reading in office without diagnosis of hypertension: Code(s): R03.0 - Elevated blood-pressure reading, without diagnosis of hypertension Plan: Patient had blood pressure readings of 160/90 and 140/88 mm during her past visits but her BP at her last visit was normal and today's blood pressure is acceptable Reinforced low sodium diet Have reminded patient to continue monitoring her blood pressure regularly (5) Allergic rhinitis: Code(s): J30.9 - Allergic rhinitis, unspecified Qualifiers: Allergic rhinitis trigger: unspecified Allergic rhinitis seasonality: unspecified Qualified Code(s): J30.9 - Allergic rhinitis, unspecified Plan: Continue OTC Loratadine 10 mg QD PRN and Fluticasone 50 mcg nasal spray QD PRN (6) Vitamin D deficiency: Code(s): E55.9 - Vitamin D deficiency, unspecified Plan: Continue Vitamin D2 400 units BID - she could not tolerate Vitamin D3 2000 units QD previously She is again reminded to continue taking her daily Multivitamins as well (7) Arthralgia: Code(s): M25.50 - Pain in unspecified joint Qualifiers: Joint pain location: unspecified Qualified Code(s): M25.50 - Pain in unspecified joint Plan: Continue Nabumetone 500 mg BID PRN (Rx refilled) and OTC Tylenol as needed for pain -? states that her joint pains have been adequately controlled on her current regimen for a while now until her recent left hip pain, which she thinks may be due to a hip strain from her riding her bike too much over the summer (8) Anxiety: Code(s): F41.9 - Anxiety disorder, unspecified Plan: Continue Buspirone 5 mg 1/2 tablet BID - she was able to cut back her dose on her own gradually over the past year or two Follow-up with Psychiatry as scheduled Plan Follow up in 4 months Orders: Orders Complete Blood Count Auto Diff Today D64.9 - Anemia, unspecified TSH reflex Free T4 Today E78.00 - Pure hypercholesterolemia, unspecified UA CC w/rflx Micro + Cult Today R30.0 - Dysuria Vitamin D 25-OH Total Today E55.9 - Vitamin D deficiency, unspecified Hemoglobin A1c Today R73.01 - Impaired fasting glucose Comprehensive [place]. Panel Fast Today E78.00 - Pure hypercholesterolemia, unspecified Lipid Panel Today E78.00 - Pure hypercholesterolemia, unspecified Medications: Changed From nabumetone 500 mg PO BID PRN 60 tabs 3RF pain To nabumetone Take with food as needed for pain 500 mg PO BID PRN 60 tabs 1RF pain Coding Level of Care Code Est Pt Level 4 (04070) Diagnoses Pure hypercholesterolemia E78.00 Hyperlipidemia type: pure hypercholesterolemia Anemia, unspecified type D64.9 Anemia type: unspecified type Chronic tonsillar hypertrophy J35.1 Elevated blood pressure reading in office without diagnosis of hypertension R03.0 Allergic rhinitis, unspecified seasonality, unspecified trigger J30.9 Allergic rhinitis trigger: unspecified Allergic rhinitis seasonality: unspecified Vitamin D deficiency E55.9 Arthralgia, unspecified joint M25.50 Joint pain location: unspecified Anxiety F41.9
== END 2024-05-25 13:13 | disposition home or self-care (01) ==
PROVIDERS: PCP Internal Medicine; Visit Provider Internal Medicine
DX: E78.00 Pure hypercholesterolemia, unspecified (principal); D64.9 Anemia, unspecified; J35.1 Hypertrophy of tonsils; R03.0 Elevated blood-pressure reading, without diagnosis of hypertension; J30.9 Allergic rhinitis, unspecified; E55.9 Vitamin D deficiency, unspecified; M25.50 Pain in unspecified joint; F41.9 Anxiety disorder, unspecified

== ENCOUNTER 2024-09-26 13:23 | Outpatient (AMB) | payer OTHER, SELFPAY ==
--- NOTE | 2024-09-26 13:40 | MHC.PC.OV ---
Vital Signs 09/26/24 13:41 Height 5 ft 5 in Weight 125 lb 8 oz BMI 20.9 BP 120/80 Blood Pressure Location Lt brachial Position Sitting Pulse 83 Pulse Source Pulse Oximeter Pulse Oximetry (%) 96 Oxygen Delivery Method Room Air Intake Visit Reasons: hyperlipidemia, allergic rhinitis, anxiety Clinical Geneticist Required: No Accompanied by: Self / Same As Patient Allergies azithromycin [From ZITHROMAX] Adverse Reaction (Severe, Verified 09/26/24 14:15) SHORTNESS OF BREATH codeine [CODEINE] Adverse Reaction (Severe, Verified 09/26/24 14:15) SHORTNESS OF BREATH penicillin V Adverse Reaction (Unknown, Verified 09/26/24 14:15) fever ??? Medication List - Last Reconciled 09/26/24 by Jossue Trevino MD acetaminophen (Tylenol) 325 mg PO .2-3 TIMES A DAY PRN buspirone 5 mg (1/2 x 10 mg) PO BID cholecalciferol (vitamin D3) 50 mcg PO DAILY 90 days fluticasone propionate 50 mcg/actuation 2 sprays intranasal DAILY 90 days loratadine 10 mg PO DAILY PRN 90 days multivitamin 1 tab PO DAILY nabumetone 500 mg PO BID PRN Tobacco use date assessed: 09/26/24 Fall risk assessment: No Falls in past year Last assessed Fall Risk: 09/26/24 Dental Screening Dental Screen Date: 09/26/24 Did you have a dental visit in the last 12 months?: Yes Did you have a dental problem in the last 6 months where you did not have access to dental care?: No Was dental information given to patient?: Patient has dentist HPI hyperlipidemia, allergic rhinitis, anxiety HPI Details Patient comes in today for her follow up visit States that she feels okay She denies any headaches or dizziness Denies any chest pains, no increased SOB - states that she had a bout of cold/flu symptoms a couple of weeks ago but her symptoms have mostly cleard up/improved since No nausea/vomiting, no abdominal pain No change in bowel habits noted She had her follow up labs done immediately after last visit in May 2024 and she would like to know if there were anything abnormal on her labs [facility] Medical History (Updated 09/26/24 @ 14:27 by Jossue Trevino MD) Vitamin D deficiency Arthralgia Allergic rhinitis Chronic tonsillar hypertrophy Elevated LFTs Hyperlipidemia Vitiligo Anxiety Depression Arthritis Anemia Surgical History No pertinent past surgical history Family History Father No problems noted. Mother No problems noted. Social History Housing: House Alcohol intake: never Patient Tobacco Use Status: Former Tobacco user e-Cigarette/Vaping Use: Never Used Second Hand Smoke Exposure: Yes service: No Current occupational status: unemployed Cognitive needs: No Hearing needs: No Vision needs: No Questionnaire PHQ-9 Over the last 2 weeks, how often have you been bothered by any of the following problems? 1. Little interest or pleasure in doing things: not at all 2. Feeling down, depressed, or hopeless: not at all 3. Trouble falling or staying asleep, or sleeping too much: not at all 4. Feeling tired or having little energy: not at all 5. Poor appetite or overeating: not at all 6. Feeling bad about yourself - or that you are a failure or have let yourself or your family down: not at all 7. Trouble concentrating on things, such as reading the newspaper or watching television: not at all 8. Moving or speaking so slowly that other people could have noticed. Or the opposite - being so fidgety or restless that you have been moving around a lot more than usual: not at all 9. Thoughts that you would be better off or of hurting yourself in some way: not at all Total score: 0 Depression Screening Interpretation: Negative Depression Screening Done: Yes 96511 - PHQ-9 Billing: Yes Source: Developed by Drs. Chandana Wright, Margo Tyson, Harry Carlson and colleagues, with an educational abbey from [employer] Thrive Questionnaire Date Thrive assessed: 09/26/24 I am a: Patient What is your living situation today?: I have a steady place to live Within the past 12 months, did the food you bought not last and you didn't have the money to get more?: Never true Within the past 12 months, did you worry whether your food would run out before you got money to buy more?: Never true Do you have trouble paying for medicines?: No Do you have trouble getting transportation to medical appointments?: No Do you have trouble paying your heating and electricity bill?: No Do you have trouble taking care of your child, family member or friend?: No Do you have trouble with day-to-day activities such as bathing, preparing meals, shopping, managing finances, etc.?: No Are you currently unemployed and looking for a job?: Yes Are you interested in more education?: No Please select the resources that you would like help with: None Currently or been in a relationship where the following occur: No concerns reported THRIVE Score: 0 AUDIT C Alcohol Use Questionnaire (AUDIT-C) 1. How often do you have a drink containing alcohol?: Never 3. How often do you have six or more drinks on one occasion?: Never Total Score: 0 Score Reviewed/Action Taken: Yes CARLY-7 AMB Questionnaire CARLY-7 Date CARLY - 7 assessed: 09/26/24 Feeling nervous, anxious, or on edge: 0 = Not at all Not being able to stop or control worryin = Not at all Worrying too much about different things: 0 = Not at all Trouble relaxin = Not at all Being so restless that it is hard to sit still: 0 = Not at all Becoming easily annoyed or irritable: 0 = Not at all Feeling afraid as if something awful might happen: 0 = Not at all Total CARLY-7 score (0-4 normal; 5-9 mild; 10-14 moderate; 15-21 severe): 0 Source: Developed by Drs. Chandaan Wright, Margo Tyson, Harry Carlson and colleagues, with an educational abbey from [employer] Review of Systems Const Denies chills, Denies fatigue, Denies fever(s) and Denies headache(s) ENT Denies dysphagia, Denies dizziness, Denies otalgia, Denies headache(s), Denies neck pain, Denies odynophagia and Denies sore throat Card Denies chest pain, Denies irregular heart rhythm, Denies palpitations and Denies dyspnea Resp Denies chest congestion, Denies cough and Denies dyspnea GI Denies abdominal pain, Denies constipation, Denies dysphagia, Denies heartburn, Denies diarrhea, Denies nausea, Denies odynophagia and Denies vomiting Denies hematuria, Denies urinary frequency, Denies dysuria and Denies urinary urgency Musc Denies back pain, Reports arthralgias (left hip - see HPI) and Denies neck pain Skin/Breast Denies rash Neuro Denies dizziness and Denies headache(s) Psych Denies anxiety and Denies depression Endo Denies fatigue and Denies palpitations Toni/Lymph Denies easy bruising Aller/Immun Reports seasonal rhinorrhea Physical exam (Primary Care) Vital Signs: Last Vital Signs Pulse 83 09/26/24 13:41 BP 120/80 09/26/24 13:41 Pulse Ox 96 09/26/24 13:41 Oxygen Delivery Method Room Air 09/26/24 13:41 BMI result Body Mass Index 20.9 Tobacco/Smoking Status: Tobacco use Status Tobacco use date assessed 09/26/24 09/26/24 13:43 Patient Tobacco Use Status Former Tobacco user 09/26/24 13:43 e-Cigarette/Vaping Use Never Used 09/26/24 13:43 PHQ-9: PHQ-9 Score PHQ-9: Total score 0 09/26/24 14:21 Depression Screening Interpretation: Negative Thrive Assessment: Date of Thrive Assessment Date Thrive assessed 09/26/24 09/26/24 13:43 Currently or been in a relationship where the following occur: No concerns reported Const General: no acute distress and alert HENMT Ears: TM's normal bilaterally and EAC's normal Throat: Yes posterior oropharynx normal and Yes abnormal tonsil (chronically enlarged tonsils bilaterally - tonsils do not appear congested) Neck Neck: Yes supple and No lymphadenopathy Thyroid: Thyroid normal Resp Auscultation: clear to auscultation bilaterally, no rales and no wheezes Cardio Rate: regular rate Rhythm: regular rhythm Heart sounds: no murmurs GI Palpation (GI): Soft to palpation and nontender Auscultation: normal bowel sounds General: Yes no CVA tenderness Back/Spine/Pelvis Back: no CVA tenderness Thoracic/Lumbar Spine: No lumbar spinal tenderness Skin Rashes: no rashes Extrem General: Yes no clubbing, cyanosis or edema Results Reviewed Results Reviewed: Laboratory Tests 05/25/24 05/25/24 13:26 13:40 WBC 10.8 Hgb 13.5 Hct 40.5 Plt Count 379 Sodium 141 Potassium 4.1 Creatinine 0.77 Estimated GFR > 60 Fasting Glucose 105 H Hemoglobin A1c % 5.4 Calcium 10.4 H D AST 32 H ALT 35 H Alkaline Phosphatase 150 H Triglycerides 164 H Cholesterol 218 H LDL Cholesterol, Calc 128 H HDL Cholesterol 58 25-OH Vitamin D Total 40.3 TSH 1.03 Ur Specific [place] 1.010 Urine Protein Negative Urine Glucose (UA) Negative Urine Blood Negative Urine Nitrite Negative Ur Leukocyte Esterase Negative Coding Level of Care Code Est Pt Level 4 (82722) Diagnoses Pure hypercholesterolemia E78.00 Hyperlipidemia type: pure hypercholesterolemia Anemia, unspecified type D64.9 Anemia type: unspecified type Chronic tonsillar hypertrophy J35.1 Elevated blood pressure reading in office without diagnosis of hypertension R03.0 Allergic rhinitis, unspecified seasonality, unspecified trigger J30.9 Allergic rhinitis trigger: unspecified Allergic rhinitis seasonality: unspecified Vitamin D deficiency E55.9 Arthralgia, unspecified joint M25.50 Joint pain location: unspecified Anxiety F41.9 Additional Codes PHQ-9 - 40656 - PHQ-9 Billing: Yes ([id number]) Assessment & Plan Assessment & Plan (1) Hyperlipidemia: Code(s): E78.5 - Hyperlipidemia, unspecified Category: Medical Qualifiers: Hyperlipidemia type: pure hypercholesterolemia Qualified Code(s): E78.00 - Pure hypercholesterolemia, unspecified Plan: Results of her labs done back in May 2024 reviewed and discussed with patient Reinforced low cholesterol diet Will have patient recheck her labs and fasting lipids in 4 months for follow-up (2) Anemia: Code(s): D64.9 - Anemia, unspecified Category: Medical Qualifiers: Anemia type: unspecified type Qualified Code(s): D64.9 - Anemia, unspecified Plan: Corrected on her recent labs in May 2024 Will continue to monitor her CBC regularly (3) Chronic tonsillar hypertrophy: Code(s): J35.1 - Hypertrophy of tonsils Category: Medical Plan: Patient currently remains asymptomatic -?will continue to observe for now Patient was referred to ENT for evaluation in the past but she was not able to keep her appointment and prefers not to see ENT at this time since her throat has not been bothering her at all (4) Elevated blood pressure reading in office without diagnosis of hypertension: Code(s): R03.0 - Elevated blood-pressure reading, without diagnosis of hypertension Category: Medical Plan: Patient blood pressure today is normal; she's had readings of 160/90 and 140/88 mm during her past visits Reinforced low sodium diet Have reminded patient to continue monitoring her blood pressure regularly (5) Allergic rhinitis: Code(s): J30.9 - Allergic rhinitis, unspecified Category: Medical Qualifiers: Allergic rhinitis trigger: unspecified Allergic rhinitis seasonality: unspecified Qualified Code(s): J30.9 - Allergic rhinitis, unspecified Plan: Continue OTC Loratadine 10 mg QD PRN and Fluticasone 50 mcg nasal spray QD PRN (6) Vitamin D deficiency: Code(s): E55.9 - Vitamin D deficiency, unspecified Category: Medical Plan: Continue Vitamin D2 400 units BID - she could not tolerate Vitamin D3 2000 units QD previously She is again reminded to continue taking her daily Multivitamins as well (7) Arthralgia: Code(s): M25.50 - Pain in unspecified joint Category: Medical Qualifiers: Joint pain location: unspecified Qualified Code(s): M25.50 - Pain in unspecified joint Plan: Continue Nabumetone 500 mg BID PRN (Rx refilled) and OTC Tylenol as needed for pain -? states that her joint pains have been adequately controlled on her current regimen for a while now until her recent left hip pain, which she thinks may be due to a hip strain from her riding her bike too much over the summer (8) Anxiety: Code(s): F41.9 - Anxiety disorder, unspecified Category: Medical Plan: Continue Buspirone 5 mg 1/2 tablet BID - she was able to cut back her dose on her own gradually over the past year or two Follow-up with Psychiatry as scheduled Plan Follow up in 4 months Orders: Orders Complete Blood Count Auto Diff 4 Months D64.9 - Anemia, unspecified, E83.52 - Hypercalcemia, R79.89 - Other specified abnormal findings of blood chemistry Comprehensive Met. Panel 4 Months E83.52 - Hypercalcemia, R79.89 - Other specified abnormal findings of blood chemistry TSH reflex Free T4 4 Months E78.00 - Pure hypercholesterolemia, unspecified, E83.52 - Hypercalcemia, R79.89 - Other specified abnormal findings of blood chemistry UA CC w/rflx Micro + Cult 4 Months E83.52 - Hypercalcemia, R30.0 - Dysuria, R79.89 - Other specified abnormal findings of blood chemistry Vitamin D 25-OH Total 4 Months E55.9 - Vitamin D deficiency, unspecified, E83.52 - Hypercalcemia, R79.89 - Other specified abnormal findings of blood chemistry
[2024-09-26 13:41] VITALS: BP 120/80; PULSE 83; O2SAT 96; BMI 20.9
== END 2024-09-26 14:31 | disposition home or self-care (01) ==
PROVIDERS: PCP Internal Medicine; Visit Provider Internal Medicine
DX: E78.00 Pure hypercholesterolemia, unspecified (principal); D64.9 Anemia, unspecified; J35.1 Hypertrophy of tonsils; R03.0 Elevated blood-pressure reading, without diagnosis of hypertension; J30.9 Allergic rhinitis, unspecified; E55.9 Vitamin D deficiency, unspecified; M25.50 Pain in unspecified joint; F41.9 Anxiety disorder, unspecified

== ENCOUNTER → 2024-09-26 13:23 | Outpatient (BNVA) | payer OTHER, SELFPAY | PROVIDERS: PCP Internal Medicine; Visit Provider Internal Medicine | DX: E78.00 Pure hypercholesterolemia, unspecified (principal); D64.9 Anemia, unspecified; J35.1 Hypertrophy of tonsils; R03.0 Elevated blood-pressure reading, without diagnosis of hypertension; J30.9 Allergic rhinitis, unspecified; E55.9 Vitamin D deficiency, unspecified; M25.50 Pain in unspecified joint; F41.9 Anxiety disorder, unspecified | CPT/HCPCS: 96127; 99212 ==

== ENCOUNTER 2025-01-24 13:39 | Outpatient (AMB) | payer OTHER, SELFPAY ==
[2025-01-24 13:52] VITALS: BP 150/86; PULSE 104; O2SAT 97; BMI 19.3
--- NOTE | 2025-01-24 13:52 | MHC.PC.OV ---
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 Medication List - Last Reconciled 01/24/25 by Jossue Trevino MD acetaminophen (Tylenol) 325 mg PO .2-3 TIMES A DAY PRN buspirone 5 mg (1/2 x 10 mg) PO BID cholecalciferol (vitamin D3) 50 mcg PO DAILY 90 days fluticasone propionate 50 mcg/actuation 2 sprays intranasal DAILY 90 days loratadine 10 mg PO DAILY PRN 90 days multivitamin 1 tab PO DAILY nabumetone 500 mg PO BID PRN Tobacco use date assessed: 01/24/25 Fall risk assessment: No Falls in past year Last assessed Fall Risk: 01/24/25 Dental Screening Dental Screen Date: 01/24/25 Did you have a dental visit in the last 12 months?: Yes Did you have a dental problem in the last 6 months where you did not have access to dental care?: No Was dental information given to patient?: Patient has dentist HPI hyperlipidemia, elevated LFTs, hypercalcemia HPI Details Patient comes in today for her follow up visit States that she feels okay She denies any headaches; reports (+) on and off dizziness, usually when she moves about too quickly or after she exercises / works out for a while She denies any exertional chest pains, no increased SOB No nausea/vomiting, no abdominal pain No change in bowel habits noted She was not able to get her follow up labs done prior to her appointment today- states that she will try to get these done [facility] Medical History Vitamin D deficiency Arthralgia Allergic rhinitis Chronic tonsillar hypertrophy Elevated LFTs Hyperlipidemia Vitiligo Anxiety Depression Arthritis Anemia Surgical History No pertinent past surgical history Family History Father No problems noted. Mother No problems noted. Social History Housing: House Alcohol intake: never Patient Tobacco Use Status: Former Tobacco user e-Cigarette/Vaping Use: Never Used Second Hand Smoke Exposure: Yes service: No Current occupational status: unemployed Cognitive needs: No Hearing needs: No Vision needs: No Questionnaire PHQ-9 Over the last 2 weeks, how often have you been bothered by any of the following problems? 1. Little interest or pleasure in doing things: not at all 2. Feeling down, depressed, or hopeless: not at all 3. Trouble falling or staying asleep, or sleeping too much: not at all 4. Feeling tired or having little energy: not at all 5. Poor appetite or overeating: not at all 6. Feeling bad about yourself - or that you are a failure or have let yourself or your family down: not at all 7. Trouble concentrating on things, such as reading the newspaper or watching television: not at all 8. Moving or speaking so slowly that other people could have noticed. Or the opposite - being so fidgety or restless that you have been moving around a lot more than usual: not at all 9. Thoughts that you would be better off or of hurting yourself in some way: not at all Total score: 0 Depression Screening Interpretation: Negative Depression Screening Done: Yes 21639 - PHQ-9 Billing: Yes Source: Developed by Drs. Chandana Wright, Margo Tyson, Harry Carlson and colleagues, with an educational abbey from [employer]. Thrive Questionnaire Date Thrive assessed: 01/24/25 I am a: Patient What is your living situation today?: I have a steady place to live Within the past 12 months, did the food you bought not last and you didn't have the money to get more?: Never true Within the past 12 months, did you worry whether your food would run out before you got money to buy more?: Never true Do you have trouble paying for medicines?: No Do you have trouble getting transportation to medical appointments?: No Do you have trouble paying your heating and electricity bill?: No Do you have trouble taking care of your child, family member or friend?: No Do you have trouble with day-to-day activities such as bathing, preparing meals, shopping, managing finances, etc.?: No Are you currently unemployed and looking for a job?: Yes Are you interested in more education?: No Please select the resources that you would like help with: None Currently or been in a relationship where the following occur: No concerns reported THRIVE Score: 0 AUDIT C Alcohol Use Questionnaire (AUDIT-C) 1. How often do you have a drink containing alcohol?: Never 3. How often do you have six or more drinks on one occasion?: Never Total Score: 0 Score Reviewed/Action Taken: Yes CARLY-7 AMB Questionnaire CARLY-7 Date CARLY - 7 assessed: 01/24/25 Feeling nervous, anxious, or on edge: 0 = Not at all Not being able to stop or control worryin = Not at all Worrying too much about different things: 0 = Not at all Trouble relaxin = Not at all Being so restless that it is hard to sit still: 0 = Not at all Becoming easily annoyed or irritable: 0 = Not at all Feeling afraid as if something awful might happen: 0 = Not at all Total CARLY-7 score (0-4 normal; 5-9 mild; 10-14 moderate; 15-21 severe): 0 Source: Developed by Drs. Chandana Wright, Margo Tyson, Harry Carlson and colleagues, with an educational abbey from [employer]. Review of Systems Const Denies chills, Denies fatigue, Denies fever(s) and Denies headache(s) ENT Denies dysphagia, Reports dizziness (on and off), Denies otalgia, Denies headache(s), Denies neck pain, Denies odynophagia and Denies sore throat Card Denies chest pain, Denies irregular heart rhythm, Denies palpitations and Denies dyspnea Resp Denies chest congestion, Denies cough and Denies dyspnea GI Denies abdominal pain, Denies constipation, Denies dysphagia, Denies heartburn, Denies diarrhea, Denies nausea, Denies odynophagia and Denies vomiting Denies hematuria, Denies difficulty voiding, Denies nocturia, Denies dysuria and Denies urinary urgency Musc Denies back pain, Reports arthralgias (left hip, on and off) and Denies neck pain Skin/Breast Denies rash Neuro Reports dizziness (on and off) and Denies headache(s) Psych Reports anxiety and Denies depression Endo Denies fatigue and Denies palpitations Toni/Lymph Denies easy bruising Aller/Immun Reports seasonal rhinorrhea Physical exam (Primary Care) Vital Signs: Last Vital Signs Pulse 104 H 01/24/25 13:52 BP 150/86 H 01/24/25 13:52 Pulse Ox 97 01/24/25 13:52 Oxygen Delivery Method Room Air 01/24/25 13:52 BMI result Body Mass Index 19.3 Tobacco/Smoking Status: Tobacco use Status Tobacco use date assessed 01/24/25 01/24/25 13:58 Patient Tobacco Use Status Former Tobacco user 01/24/25 13:58 e-Cigarette/Vaping Use Never Used 01/24/25 13:58 PHQ-9: PHQ-9 Score PHQ-9: Total score 0 01/24/25 13:58 Depression Screening Interpretation: Negative Thrive Assessment: Date of Thrive Assessment Date Thrive assessed 01/24/25 01/24/25 13:58 Currently or been in a relationship where the following occur: No concerns reported Const General: no acute distress and alert HENMT Ears: TM's normal bilaterally and EAC's normal Throat: Yes posterior oropharynx normal and Yes abnormal tonsil (chronically enlarged tonsils bilaterally - tonsils do not appear congested) Neck Neck: Yes supple and No lymphadenopathy Thyroid: Thyroid normal Resp Auscultation: clear to auscultation bilaterally, no rales and no wheezes Cardio Rate: regular rate Rhythm: regular rhythm Heart sounds: no murmurs GI Palpation (GI): Soft to palpation and nontender Auscultation: normal bowel sounds General: Yes no CVA tenderness Back/Spine/Pelvis Back: no CVA tenderness Thoracic/Lumbar Spine: No lumbar spinal tenderness Skin Rashes: no rashes Extrem General: Yes no clubbing, cyanosis or edema Coding Level of Care Code Est Pt Level 4 (75534) Diagnoses Pure hypercholesterolemia E78.00 Hyperlipidemia type: pure hypercholesterolemia Anemia, unspecified type D64.9 Anemia type: unspecified type Chronic tonsillar hypertrophy J35.1 Elevated blood pressure reading in office without diagnosis of hypertension R03.0 Allergic rhinitis, unspecified seasonality, unspecified trigger J30.9 Allergic rhinitis trigger: unspecified Allergic rhinitis seasonality: unspecified Vitamin D deficiency E55.9 Arthralgia, unspecified joint M25.50 Joint pain location: unspecified Anxiety F41.9 Additional Codes PHQ-9 - 28174 - PHQ-9 Billing: Yes ([id number]) Assessment & Plan Assessment & Plan (1) Hyperlipidemia: Code(s): E78.5 - Hyperlipidemia, unspecified Category: Medical Qualifiers: Hyperlipidemia type: pure hypercholesterolemia Qualified Code(s): E78.00 - Pure hypercholesterolemia, unspecified Plan: She was not able to get her follow up labs done prior to her appointment today - states that she will try to get these done [facility] Reinforced low cholesterol diet Will have patient recheck her labs and fasting lipids again in 4 months for follow-up (2) Anemia: Code(s): D64.9 - Anemia, unspecified Category: Medical Qualifiers: Anemia type: unspecified type Qualified Code(s): D64.9 - Anemia, unspecified Plan: Corrected on her recent labs in May 2024 Will continue to monitor her CBC regularly (3) Chronic tonsillar hypertrophy: Code(s): J35.1 - Hypertrophy of tonsils Category: Medical Plan: Patient currently remains asymptomatic -?will continue to observe for now Patient was referred to ENT for evaluation in the past but she was not able to keep her appointment and prefers not to see ENT at this time since her throat has not been bothering her at all (4) Elevated blood pressure reading in office without diagnosis of hypertension: Code(s): R03.0 - Elevated blood-pressure reading, without diagnosis of hypertension Category: Medical Plan: Patient blood pressure today is high normal; she's had readings of 160/90 and 140/88 mm during her past visits Reinforced low sodium diet Have reminded patient to continue monitoring her blood pressure regularly (5) Allergic rhinitis: Code(s): J30.9 - Allergic rhinitis, unspecified Category: Medical Qualifiers: Allergic rhinitis trigger: unspecified Allergic rhinitis seasonality: unspecified Qualified Code(s): J30.9 - Allergic rhinitis, unspecified Plan: Continue OTC Loratadine 10 mg QD PRN and Fluticasone 50 mcg nasal spray QD PRN (6) Vitamin D deficiency: Code(s): E55.9 - Vitamin D deficiency, unspecified Category: Medical Plan: Will try lowering her Vitamin D3 from 2000 units QD to 1000 units QD as she could not tolerate Vitamin D3 2000 units previously She is again reminded to continue taking her daily Multivitamins as well (7) Arthralgia: Code(s): M25.50 - Pain in unspecified joint Category: Medical Qualifiers: Joint pain location: unspecified Qualified Code(s): M25.50 - Pain in unspecified joint Plan: Continue Nabumetone 500 mg BID PRN and OTC Tylenol as needed for pain -? states that her joint pains have been adequately controlled on her current regimen for a while now until her recent left hip pain, which she thinks may be due to a hip strain from her riding her bike too much over the summer (8) Anxiety: Code(s): F41.9 - Anxiety disorder, unspecified Category: Medical Plan: Continue Buspirone 5 mg 1/2 tablet BID - she was able to cut back her dose on her own gradually over the past year or two Follow-up with Psychiatry as scheduled Plan Follow up in 4 months Orders: Orders Lipid Panel 4 Months E78.00 - Pure hypercholesterolemia, unspecified Comprehensive [place]. Panel Fast 4 Months E78.00 - Pure hypercholesterolemia, unspecified Complete Blood Count Auto Diff 4 Months D64.9 - Anemia, unspecified Medications: Changed From cholecalciferol (vitamin D3) 50 mcg PO DAILY 90 days 90 caps 3RF E55.9 - Vitamin D deficiency, unspecified To cholecalciferol (vitamin D3) 25 mcg PO DAILY 90 days 90 caps 3RF E55.9 - Vitamin D deficiency, unspecified
[2025-01-24 14:39] VITALS: BP 140/82
== END 2025-01-24 14:49 | disposition home or self-care (01) ==
LOC: HO.HMCH 13:39
PROVIDERS: PCP Internal Medicine; Visit Provider Internal Medicine
DX: E78.00 Pure hypercholesterolemia, unspecified (principal); D64.9 Anemia, unspecified; J35.1 Hypertrophy of tonsils; R03.0 Elevated blood-pressure reading, without diagnosis of hypertension; J30.9 Allergic rhinitis, unspecified; E55.9 Vitamin D deficiency, unspecified; M25.50 Pain in unspecified joint; F41.9 Anxiety disorder, unspecified

== ENCOUNTER → 2025-01-24 13:39 | Outpatient (BNVA) | payer OTHER, SELFPAY | PROVIDERS: PCP Internal Medicine; Visit Provider Internal Medicine | DX: J35.1 Hypertrophy of tonsils (principal); E55.9 Vitamin D deficiency, unspecified; E78.5 Hyperlipidemia, unspecified; R79.89 Other specified abnormal findings of blood chemistry; E78.00 Pure hypercholesterolemia, unspecified; D64.9 Anemia, unspecified; R03.0 Elevated blood-pressure reading, without diagnosis of hypertension; J30.9 Allergic rhinitis, unspecified; M25.50 Pain in unspecified joint; F41.9 Anxiety disorder, unspecified | CPT/HCPCS: 96127; 99212 ==

== ENCOUNTER 2025-05-31 12:42 | Outpatient (AMB) | payer OTHER, SELFPAY ==
[2025-05-31 12:51] VITALS: BP 142/90; PULSE 108; TEMP 36.2; O2SAT 97; BMI 19.5
--- NOTE | 2025-05-31 12:51 | A.OFFPC_ITS ---
Vital Signs 05/31/25 12:51 Height 5 ft 5 in Weight 117 lb 4 oz BMI 19.5 BP 142/90 H Blood Pressure Location Lt brachial Position Sitting Pulse 108 H Pulse Source Pulse Oximeter Temp 97.1 F Temp Source Temporal Artery Scan Pulse Oximetry (%) 97 Oxygen Delivery Method Room Air Intake Visit Reasons: 4mth f/u Allergies azithromycin (From ZITHROMAX) Adverse Reaction (Severe, Verified 05/31/25 13:06) SHORTNESS OF BREATH codeine (CODEINE) Adverse Reaction (Severe, Verified 05/31/25 13:06) SHORTNESS OF BREATH penicillin V Adverse Reaction (Unknown, Verified 05/31/25 13:06) fever ??? Medication List - Last Reconciled 05/31/25 by Jossue Trevino MD acetaminophen (Tylenol) 325 mg PO .2-3 TIMES A DAY PRN buspirone 5 mg (1/2 x 10 mg) PO BID cholecalciferol (vitamin D3) 25 mcg PO DAILY 90 days fluticasone propionate 50 mcg/actuation 2 sprays intranasal DAILY 90 days loratadine 10 mg PO DAILY PRN 90 days multivitamin 1 tab PO DAILY nabumetone 500 mg PO BID PRN Tobacco use date assessed: 05/31/25 Fall risk assessment: No Falls in past year Last assessed Fall Risk: 05/31/25 Dental Screening Dental Screen Date: 05/31/25 Did you have a dental visit in the last 12 months?: Yes Did you have a dental problem in the last 6 months where you did not have access to dental care?: No Was dental information given to patient?: Patient has dentist HPI 4mth f/u HPI Details Patient comes in today for her follow up visit States that she feels okay She denies any headaches; still has occasional dizziness, usually when she moves about too quickly or after she exercises / works out for a while, but states that are occurring very rarely now She denies any exertional chest pains, no increased SOB No nausea/vomiting, no abdominal pain No change in bowel habits noted Needs her Vitamin D Rx refilled today She is still not able to get her follow up labs done COUNTS INCLUDE 234 BEDS AT THE [facility] Medical History Vitamin D deficiency Arthralgia Allergic rhinitis Chronic tonsillar hypertrophy Elevated LFTs Hyperlipidemia Vitiligo Anxiety Depression Arthritis Anemia Surgical History No pertinent past surgical history Family History Father No problems noted. Mother No problems noted. Social History Housing: House Alcohol intake: never Patient Tobacco Use Status: Former Tobacco user e-Cigarette/Vaping Use: Never Used Second Hand Smoke Exposure: Yes service: No Current occupational status: unemployed Cognitive needs: No Hearing needs: No Vision needs: No Questionnaire PHQ-9 Over the last 2 weeks, how often have you been bothered by any of the following problems? 1. Little interest or pleasure in doing things: not at all 2. Feeling down, depressed, or hopeless: not at all 3. Trouble falling or staying asleep, or sleeping too much: not at all 4. Feeling tired or having little energy: not at all 5. Poor appetite or overeating: not at all 6. Feeling bad about yourself - or that you are a failure or have let yourself or your family down: not at all 7. Trouble concentrating on things, such as reading the newspaper or watching television: not at all 8. Moving or speaking so slowly that other people could have noticed. Or the opposite - being so fidgety or restless that you have been moving around a lot more than usual: not at all 9. Thoughts that you would be better off or of hurting yourself in some way: not at all Total score: 0 Depression Screening Interpretation: Negative Depression Screening Done: Yes 51582 - PHQ-9 Billing: Yes Source: Developed by Drs. Chandana Wright, Margo Tyson, Harry Carlson and colleagues, with an educational abbey from [employer]. Thrive Questionnaire Date Thrive assessed: 01/24/25 I am a: Patient What is your living situation today?: I have a steady place to live Within the past 12 months, did the food you bought not last and you didn't have the money to get more?: Never true Within the past 12 months, did you worry whether your food would run out before you got money to buy more?: Never true Do you have trouble paying for medicines?: No Do you have trouble getting transportation to medical appointments?: No Do you have trouble paying your heating and electricity bill?: No Do you have trouble taking care of your child, family member or friend?: No Do you have trouble with day-to-day activities such as bathing, preparing meals, shopping, managing finances, etc.?: No Are you currently unemployed and looking for a job?: Yes Are you interested in more education?: No Please select the resources that you would like help with: None Currently or been in a relationship where the following occur: No concerns reported THRIVE Score: 0 AUDIT C Alcohol Use Questionnaire (AUDIT-C) 1. How often do you have a drink containing alcohol?: Never 3. How often do you have six or more drinks on one occasion?: Never Total Score: 0 Score Reviewed/Action Taken: Yes CARLY-7 AMB Questionnaire CARLY-7 Date CARLY - 7 assessed: 01/24/25 Feeling nervous, anxious, or on edge: 0 = Not at all Not being able to stop or control worryin = Not at all Worrying too much about different things: 0 = Not at all Trouble relaxin = Not at all Being so restless that it is hard to sit still: 0 = Not at all Becoming easily annoyed or irritable: 0 = Not at all Feeling afraid as if something awful might happen: 0 = Not at all Total CARLY-7 score (0-4 normal; 5-9 mild; 10-14 moderate; 15-21 severe): 0 Source: Developed by Drs. Chandana Wright, Margo Tyson, Harry Carlson and colleagues, with an educational abbey from [employer]. Review of Systems Const Denies chills, Denies fatigue, Denies fever(s) and Denies headache(s) ENT Denies dysphagia, Reports dizziness (on and off), Denies otalgia, Denies headache(s), Denies neck pain, Denies odynophagia and Denies sore throat Card Denies chest pain, Denies irregular heart rhythm, Denies palpitations and Denies dyspnea Resp Denies chest congestion, Denies cough and Denies dyspnea GI Denies abdominal pain, Denies constipation, Denies dysphagia, Denies heartburn, Denies diarrhea, Denies nausea, Denies odynophagia and Denies vomiting Denies hematuria, Denies difficulty voiding, Denies nocturia, Denies dysuria and Denies urinary urgency Musc Denies back pain, Reports arthralgias (left hip, on and off) and Denies neck pain Skin/Breast Denies rash Neuro Reports dizziness (on and off) and Denies headache(s) Psych Reports anxiety and Denies depression Endo Denies fatigue and Denies palpitations Toni/Lymph Denies easy bruising Aller/Immun Reports seasonal rhinorrhea Physical exam (Primary Care) Vital Signs: Last Vital Signs Temp 97.1 F 05/31/25 12:51 Pulse 108 H 05/31/25 12:51 BP 142/90 H 05/31/25 12:51 Pulse Ox 97 05/31/25 12:51 Oxygen Delivery Method Room Air 05/31/25 12:51 BMI result Body Mass Index 19.5 Tobacco/Smoking Status: Tobacco use Status Tobacco use date assessed 05/31/25 05/31/25 12:54 Patient Tobacco Use Status Former Tobacco user 05/31/25 12:54 e-Cigarette/Vaping Use Never Used 05/31/25 12:54 PHQ-9: PHQ-9 Score PHQ-9: Total score 0 05/31/25 12:54 Depression Screening Interpretation: Negative Thrive Assessment: Date of Thrive Assessment Date Thrive assessed 01/24/25 05/31/25 12:54 Currently or been in a relationship where the following occur: No concerns reported Const General: no acute distress and alert HENMT Ears: TM's normal bilaterally and EAC's normal Throat: Yes posterior oropharynx normal and Yes abnormal tonsil (chronically enlarged tonsils bilaterally - tonsils do not appear congested) Neck Neck: Yes supple and No lymphadenopathy Thyroid: Thyroid normal Resp Auscultation: clear to auscultation bilaterally, no rales and no wheezes Cardio Rate: regular rate Rhythm: regular rhythm Heart sounds: no murmurs GI Palpation (GI): Soft to palpation and nontender Auscultation: normal bowel sounds General: Yes no CVA tenderness Back/Spine/Pelvis Back: no CVA tenderness Thoracic/Lumbar Spine: No lumbar spinal tenderness Skin Rashes: no rashes Extrem General: Yes no clubbing, cyanosis or edema Coding Level of Care Code Est Pt Level 4 (16018) Diagnoses Pure hypercholesterolemia E78.00 Hyperlipidemia type: pure hypercholesterolemia Anemia, unspecified type D64.9 Anemia type: unspecified type Chronic tonsillar hypertrophy J35.1 Elevated blood pressure reading in office without diagnosis of hypertension R03.0 Allergic rhinitis, unspecified seasonality, unspecified trigger J30.9 Allergic rhinitis trigger: unspecified Allergic rhinitis seasonality: unspecified Vitamin D deficiency E55.9 Arthralgia, unspecified joint M25.50 Joint pain location: unspecified Anxiety F41.9 Additional Codes PHQ-9 - 26862 - PHQ-9 Billing: Yes ([id number]) Assessment & Plan Assessment & Plan (1) Hyperlipidemia: Code(s): E78.5 - Hyperlipidemia, unspecified Category: Medical Qualifiers: Hyperlipidemia type: pure hypercholesterolemia Qualified Code(s): E78.00 - Pure hypercholesterolemia, unspecified Plan: She was not able to get her follow up labs done prior to her appointment today - states that she will try to get these done DAMION Reinforced low cholesterol diet Advised patient that we will follow up her lab results as soon as they are available for review (2) Anemia: Code(s): D64.9 - Anemia, unspecified Category: Medical Qualifiers: Anemia type: unspecified type Qualified Code(s): D64.9 - Anemia, unspecified Plan: Corrected on her labs done back in May 2024 Will continue to monitor her CBC regularly (3) Chronic tonsillar hypertrophy: Code(s): J35.1 - Hypertrophy of tonsils Category: Medical Plan: Patient currently remains asymptomatic -?will continue to observe for now Patient was referred to ENT for evaluation in the past but she was not able to keep her appointment and prefers not to see ENT at this time since her throat has not been bothering her at all Exam of her throat today revealed (+) decrease in the size of her tonsils from before (4) Elevated blood pressure reading in office without diagnosis of hypertension: Code(s): R03.0 - Elevated blood-pressure reading, without diagnosis of hypertension Category: Medical Plan: Patient blood pressure today is again elevated at 142/90; she's had readings of 160/90 and 140/88 mm during her past visits Reinforced low sodium diet Patient again emphasizes that she would prefer not to take any Rx for her blood pressure and that her readings from home are often much lower than they are here in the office Have reminded patient to continue monitoring her blood pressure regularly (5) Allergic rhinitis: Code(s): J30.9 - Allergic rhinitis, unspecified Category: Medical Qualifiers: Allergic rhinitis trigger: unspecified Allergic rhinitis seasonality: unspecified Qualified Code(s): J30.9 - Allergic rhinitis, unspecified Plan: Continue OTC Loratadine 10 mg QD PRN and Fluticasone 50 mcg nasal spray QD PRN (6) Vitamin D deficiency: Code(s): E55.9 - Vitamin D deficiency, unspecified Category: Medical Plan: Continue Vitamin D3 1000 units QD (Rx refilled) - she could not tolerate Vitamin D3 2000 units previously She is again reminded to continue taking her daily Multivitamins as well (7) Arthralgia: Code(s): M25.50 - Pain in unspecified joint Category: Medical Qualifiers: Joint pain location: unspecified Qualified Code(s): M25.50 - Pain in unspecified joint Plan: Continue Nabumetone 500 mg BID PRN and OTC Tylenol as needed for pain -? states that her joint pains have been adequately controlled on her current regimen for a while now until her recent left hip pain, which she thinks may be due to a hip strain from her riding her bike too much over the summer (8) Anxiety: Code(s): F41.9 - Anxiety disorder, unspecified Category: Medical Plan: Continue Buspirone 5 mg 1/2 tablet BID - she was able to cut back her dose on her own gradually over the past year or two Follow-up with Psychiatry as scheduled Plan Follow up in 4 months Medications: Refilled cholecalciferol (vitamin D3) 25 mcg PO DAILY 90 caps 3RF 90 days E55.9 - Vitamin D deficiency, unspecified
== END 2025-05-31 13:20 | disposition home or self-care (01) ==
LOC: HO.HMCH 12:42
PROVIDERS: PCP Internal Medicine; Visit Provider Internal Medicine
DX: E78.00 Pure hypercholesterolemia, unspecified (principal); D64.9 Anemia, unspecified; J35.1 Hypertrophy of tonsils; R03.0 Elevated blood-pressure reading, without diagnosis of hypertension; J30.9 Allergic rhinitis, unspecified; E55.9 Vitamin D deficiency, unspecified; M25.50 Pain in unspecified joint; F41.9 Anxiety disorder, unspecified

== ENCOUNTER → 2025-05-31 12:42 | Outpatient (BNVA) | payer OTHER, SELFPAY | PROVIDERS: PCP Internal Medicine; Visit Provider Internal Medicine | DX: J35.1 Hypertrophy of tonsils (principal); J30.9 Allergic rhinitis, unspecified; E78.00 Pure hypercholesterolemia, unspecified; D64.9 Anemia, unspecified; R03.0 Elevated blood-pressure reading, without diagnosis of hypertension; E55.9 Vitamin D deficiency, unspecified; M25.50 Pain in unspecified joint; F41.9 Anxiety disorder, unspecified | CPT/HCPCS: 96127; 99212 ==